=== PATIENT | male | born 1945 | race Caucasian/White ===

== ENCOUNTER 2019-12-30 12:06 | Inpatient (IN) | payer MEDICARE, MEDICAID, SELFPAY ==
--- NOTE | ~2019-12-30 | XR_ITS ---
EXAMINATION: XR chest 2V DATE: 12/30/2019 12:42 INDICATION: Weakness TECHNIQUE: Frontal and lateral views of the chest are obtained COMPARISON: None available FINDINGS: There is slightly asymmetric opacification in the right lung apex. There is no pleural effu rafael or pneumothorax. The cardiomediastinal silhouette is normal. There is mild thoracic spondylosis. IMPRESSION: 1. Slight asymmetric opacification of the right lung apex compared to the left. Finding could reflect scarring, atelectasis, or overlapping vasculature however, further evaluation with CT is recommended . Reviewed, dictated and finalized at location A. LE MAKER IMPRESSION: 1. Slight asymmetric opacification of the right lung apex compared to the left. Finding could reflect scarring, atelectasis, or overlapping vasculature kia gavin, further evaluation with CT is recommended.
--- NOTE | ~2019-12-30 | CT_ITS ---
EXAMINATION: CT chest wo con DATE: 12/30/2019 13:32 INDICATION: Right apical lung opacity on chest radiograph TECHNIQUE: Computed tomography (CT) of the chest was performed without intravenous contrast. The dose -length product (DLP) was 800.52 mGy-cm. Automated exposure control and iterative reconstruction tech XTRMque were employed. COMPARISON: None FINDINGS: Blood vessels account for the right apical asymmetry seen on the chest radiograph. There is elevation of the right hemidiaphragm. Mild dependent atelectasis is noted. No pathologically enlarge d thoracic lymph nodes are identified. The heart size is normal. Calcified coronary artery atheroscle rosis is noted. There is circumferential wall thickening of the distal esophagus. The nondistended ga llbladder contains numerous stones. There is a 3.9 cm cyst of the right kidney. Healed bilateral rib fractures are noted. IMPRESSION: 1. Prominent vasculature accounting for the chest radiographic finding in question. 2. Circumferential thickening of the distal esophagus, possibly esophagitis. Recommend nonemergent di rect visualization. 3. Cholelithiasis without evidence of cholecystitis. Reviewed, dictated and finalized at location A. GING MACHINE OPERATOR IMPRESSION: 1. Prominent vasculature accounting for the chest radiographic finding in quest ion. 2. Circumferential thickening of the distal esophagus, possibly esophagitis. Re commend nonemergent direct visualization. 3. Cholelithiasis without evidence of cholecystitis.
[2019-12-30 12:15] VITALS: BP 145/65; PULSE 107; RESP 18; TEMP 36.9; O2SAT 93
[2019-12-30 12:34] LABS: Appearance Urine Cloudy (Clear); Bilirubin Urine 1+ (Negative); Color Urine Yellow (Yellow); Glucose Urine UA Negative (Negative); Ketones Urine Trace (Negative); Leukocyte Esterase Ur 2+ LEU/UL (Negative); Nitrate Urine Positive (Negative); Protein Urine 2+ (Negative); Specific Grav Ur 1.015 (1.010-1.020); Urobilinogen Urine 0.2 mg/dL (0.2-1.0); pH Urine 8.5 (5.0-8.0)
[2019-12-30 12:41] LABS: Add Urine Microscopic? YES; Blood Urine Trace-Intact (Negative)
[2019-12-30 12:42] LABS: Amorphous Sediment Urine Heavy; Bacteria Urine 2+ /hpf; RBC Urine 0-2 /hpf (0-2); Triple Phosphate Crystal Urine Present /hpf
[2019-12-30] MEDS: SODIUM CHLORIDE 0.9% IV 1,000 ML 999 ML IV CONT (12:45)
--- NOTE | 2019-12-30 12:45 | ECG_ITS ---
Measurements Intervals [place] Rate: 113 P: 46 MN: 156 QRS: 43 QRSD: 84 T: 39 QT: 317 QTc: 436 Interpretive Statements SINUS TACHYCARDIA BORDERLINE ST-T WAVE ABNORMALITY- INF/LAT LEADS BASELINE ARTIFACT- I, II, III, AVR, AVL, AVF, V1 ABNORMAL ECG Electronically Signed On 12-30-2019 13:53:14 [employer]IP[employer] by Michael Medina D.O.
[2019-12-30 12:52] LABS: Influenza Control Valid (Valid)
--- NOTE | 2019-12-30 12:54 | ED.FEVER ---
HPI - Fever General Chief Complaint: Fever Stated Complaint: ambulance Source: patient, family and EMS Mode of arrival: EMS Limitations: no limitations History of Present Illness HPI Narrative: a 74-year-old male presents to emergency department via EMS with family calling EMS with increased temperature fever of 102 and increased weakness, patient denies any shortness of breath denies chest pain no abdominal pain is having some increased issues with urinary frequency with dysuria burning sensation and a follow-up older. patient with a history diabetes 2 hypertension hyperlipidemia BKA and lesion to his left ear. Patient has been having dark urine with increasing weakness is here with his and they have called EMS for further evaluation. Patient denies abdominal pain there is no flank pain or tenderness patient appears slightly confused with thumb no headaches no blurry vision. MD elicited complaint: fever and weakness Pertinent past history: diabetes Onset (ago): day(s) Exacerbating factors: nothing Relieving factors: nothing Associated symptoms: denies other symptoms Related Data Home Medications Medication Instructions Recorded Confirmed aspirin [Aspir-81] 81 mg PO DAILY 12/30/19 12/30/19 felodipine 10 mg PO DAILY 12/30/19 12/30/19 insulin aspart U-100 [Novolog 16 unit SUBCUT TIDWM 12/30/19 12/30/19 U-100 Insulin aspart] insulin glargine [Lantus U-100 50 unit SUBCUT HS 12/30/19 12/30/19 Insulin] lisinopril-hydrochlorothiazide 2 tablet PO DAILY 12/30/19 12/30/19 metformin 1,000 mg PO BID 12/30/19 12/30/19 metoprolol succinate 50 mg PO DAILY 12/30/19 12/30/19 pravastatin 80 mg PO HS 12/30/19 12/30/19 Allergies Allergy/AdvReac Type Severity Reaction Status Date / Time No Known Allergies Allergy Verified 12/30/19 13:04 Review of Systems Review of Systems: All systems reviewed & are unremarkable except as noted in HPI and below PMFSH Past Medical History Medical History Diabetes mellitus HLD (hyperlipidemia) HTN (hypertension) Surgical History Surgical History Hx of BKA Exam Const: General: no acute distress and alert Orientation/consciousness: patient oriented x3 and confusion HENMT: Head: normal to inspection Other: Ulcerative lesion on the left earlobe Eyes: Conjunctivae: conjunctivae normal Pupils: Equal, round and reactive pupils present EOM: EOMs intact bilaterally Neck: Neck: normal visual inspection Chest: Chest palpation & inspection: normal inspection of the chest and abnormal inspection of the chest Resp: Effort & Inspection: normal respiratory effort Auscultation: clear to auscultation bilaterally Cardio: Rate: regular rate and tachycardic GI: GI Palp: Yes Soft to palpation : General: Yes no CVA tenderness Urinary Catheter: Urinary Catheter: patent and draining Back/Spine/Pelvis: Back: no CVA tenderness Skin: General skin exam: normal color Rashes: no rashes Neuro: General: patient oriented x3, moves all extremities, no meningeal signs and no focal motor deficits Extrem: Other: right [id number] Psych: Mental Status: mental status grossly normal Affect: normal affect Thought content: Yes Normal thought content present MDM - Fever Lab Data Attestation: I reviewed the patient's lab results. Labs: Lab Results 12/30/19 12/30/19 Range/Units 12:24 12:24 Urine Color Yellow (Yellow) Urine Appearance Cloudy A (Clear) Urine pH 8.5 H (5.0-8.0) Ur Specific [place] 1.015 (1.010-1.020) Urine Protein 2+ H (Negative) Urine Glucose (UA) Negative (Negative) Urine Ketones Trace H (Negative) Ur Blood (Man) Trace-intact H (Negative) Urine Nitrate Positive H (Negative) Urine Bilirubin 1+ H (Negative) Urine Urobilinogen 0.2 (0.2-1.0) mg/dL Leukocyte Esterase Rfl 2+ H (Negative) CLAUDY/UL U
[2019-12-30 13:00] LABS: Hematocrit 45.7 % (37.0-46.0); Hemoglobin 15.1 g/dL (12.4-15.3); Mean Corpuscular Hemoglobin 30.4 pg (27.0-31.0); Mean Corpuscular Volume 92.1 fL (78.0-102.0); Platelet Count Result 372 K/mm3 (150-420); Red Blood Count 4.96 M/mm3 (4.70-6.10)
[2019-12-30 13:06] LABS: White Blood Count 21.1 K/mm3 (4.8-10.8)
[2019-12-30 13:12] LABS: Partial Thromboplastin Time 30.5 SEC (22.3-31.6); Prothrombin Time 10.2 Seconds (9.64-11.0)
[2019-12-30 13:20] LABS: Lactic Acid Reflex 3.2 mmol/L (0.4-2.0)
[2019-12-30 13:21] LABS: Band Neutrophils Percent 1 % (0-6); Basophils Absolute Manual 0.42 K/mm3 (0-0.1); Basophils Percent Manual 2 % (0-1); Eosinophils Percent Manual 0 % (1-6); Lymphocytes Absolute Manual 2.74 K/mm3 (1.1-4.5); Lymphocytes Percent Manual 13 % (18-44); Monocytes Absolute Manual 0.84 K/mm3 (0.1-0.90); Monocytes Percent Manual 4 % (3-9); Neutrophils Absolute Manual 17.09 K/mm3 (1.3-6.7); Neutrophils Percent Manual 80 % (46-73); Platelet Estimate Adequate (Adequate); Total Cells Counted 100
[2019-12-30 13:29] LABS: Alanine Aminotransferase 20 U/L (16-63); Albumin Level 3.5 g/dL (3.4-5.0); Alkaline Phosphatase 51 U/L (46-116); Anion Gap 20.1 mmol/L (7-16); Aspartate Amino Transferase 18 U/L (15-37); Bilirubin,Total 0.8 mg/dL (0.00-1.00); Blood Urea Nitrogen 22 mg/dL (7-18); CRP 2.1 mg/dL (0.0-0.9); Calcium 8.7 mg/dL (8.5-10.1); Carbon Dioxide 23 mmol/L (21-32); Chloride 98 mmol/L (98-108); Estimated Glomerular Filt Rate > 60; Glucose 200 mg/dL (70-99); Osmolality Calculated 293 mOsm/kg (285-295); Potassium 4.1 mmol/L (3.5-5.1); Sodium 137 mmol/L (136-145); Total Protein 7.8 g/dL (6.4-8.2)
[2019-12-30 13:52] LABS: Reflex Lactic Acid Yes or No Add Lactic; Troponin I < 0.02 ng/mL (0.00-0.056)
[2019-12-30] MEDS: SODIUM CHLORIDE 0.9% IV 1,000 ML 100 ML IV CONT (14:26)
--- NOTE | 2019-12-30 14:35 | PC.NURSE ---
RN CONTACTED JENN, LEAD NETWORK ARCHITECT, TO REQUEST AN INPATIENT ROOM. ROOM 227 PROVIDED. REGISTRATION NOTIFIED.
[2019-12-30 15:18] VITALS: BMI 32.5
[2019-12-30 16:00] VITALS: BP 139/86; PULSE 114; RESP 18; TEMP 36.4; O2SAT 95
[2019-12-30 16:30] LABS: Lactic Acid 2.3 mmol/L (0.4-2.0)
[2019-12-30 17:04] LABS: Glucose Point of Care 116 (65-105)
[2019-12-30] MEDS: metFORMIN HCL 500 MG TABLET 1000 MG PO (17:07)
--- NOTE | 2019-12-30 17:10 | PM.IMHP ---
H&P: HPI History of Present Illness Chief complaint: ambulance Narrative: .Braulio Turpin is a 74 year old male that presents today because the temperature 102 he also had difficulty urinating. Has a past history diabetes, hyperlipidemia and hypertension. According to his has been ill for a couple weeks, they were unable to tell me the exact time of illness. she noted that she decided to take his temperature because he felt warm when she did he had a fever of 102. he also had difficulty urinating with a burning sensations while urinating. According to his his urine had dark yellowish color. vital signs are 36.4, 114, 18, 95%, 139/86. While in the ER urine was collected which show positive nitrates and leukocytes with bacteria, patient white blood cells increased 21.1, lactic acid 2.3, anion gap 20.1 and CRP of 2.1 an elevated BUN. patient does have an open wound on his left ear and left face. According to his he is being treated for possible skin cancer.Patient is being admitted for UTI with sepsis and acute kidney injury. Patient denies SOB, CP, palpitation, extremity numbness, lightheadness, dizziness, constipation, diarrhea, or chills. his is his primary care provider she will not be able to care him, I suggested that he discharged to rehab. Review of Systems Constitutional: Constitutional: Denies body ache(s), Denies chills, Reports fatigue, Reports fever(s), Denies headache(s) and Reports lethargy ENT: Denies vertigo and Denies dizziness Cardiovascular: Cardiovascular: Denies chest pain at rest, Denies chest pain with activity and Denies dyspnea Respiratory: Respiratory: Denies chest congestion and Denies cough Gastrointestinal: Gastrointestinal: Reports diarrhea, Denies nausea and Denies vomiting Genitourinary: Genitourinary: Denies hematuria, Reports oliguria, Reports dysuria and Reports urinary hesitancy Musculoskeletal: Musculoskeletal: Reports muscle weakness and Denies numbness Integumentary/Breasts: Skin/Breast: Reports skin ulcer ( Open ulcer to the left ear and right cheek) PMF Past Medical History Medical History Diabetes mellitus HLD (hyperlipidemia) HTN (hypertension) Surgical History Surgical History Hx of BKA Family History Family History (Updated 12/30/19 @ 15:43 by Laura Trevino RN) Father Cancer Mother Cancer Social History Social History Smoking status: Former smoker Tobacco type: cigarettes, pipe, cigars and smokeless tobacco Second hand tobacco smoke exposure: Yes Alcohol intake: current Drinks per week: 6 Substance use type: does not use Gender identity (if verbalized by the patient): Male Spiritual care concerns: No Agree to blood products: Yes Meds Home Medications and Allergies Home Medications Medication Instructions Recorded Confirmed Type aspirin [Aspir-81] 81 mg PO DAILY 12/30/19 12/30/19 History felodipine 10 mg PO DAILY 12/30/19 12/30/19 History insulin aspart U-100 [Novolog 16 unit SUBCUT TIDWM 12/30/19 12/30/19 History U-100 Insulin aspart] insulin glargine [Lantus U-100 50 unit SUBCUT HS 12/30/19 12/30/19 History Insulin] lisinopril-hydrochlorothiazide 2 tablet PO DAILY 12/30/19 12/30/19 History metformin 1,000 mg PO BID 12/30/19 12/30/19 History metoprolol succinate 50 mg PO DAILY 12/30/19 12/30/19 History pravastatin 80 mg PO HS 12/30/19 12/30/19 History Allergies Allergy/AdvReac Type Severity Reaction Status Date / Time No Known Allergies Allergy Verified 12/30/19 13:04 Vital Signs Vital Signs - 24 hr 12/30/19 12:15 12/30/19 16:00 Temperature 36.9 C 36.4 C Pulse Rate 107 H 114 H Respiratory Rate 18 18 Blood Pressure 145/65 H 139/86 Pulse Oximetry 93 95 Exam Narrative: Exam Narrative: General: poor hygiene, obese,sit
[2019-12-30 20:00] VITALS: BP 155/75; PULSE 102; RESP 14; TEMP 36.1; O2SAT 95
[2019-12-30] MEDS: PRAVASTATIN SODIUM 20 MG TABLET 80 MG PO (21:09)
--- NOTE | 2019-12-30 21:27 | PC.NURSE ---
notified that patient's bedside glucoscan result was 106 and patient is due to have Lantus 50 units. N.O. to hold Lantus.
[2019-12-30 21:30] LABS: Glucose Point of Care 107 (65-105)
[2019-12-30 22:00] VITALS: BP 155/75; PULSE 102; RESP 16; TEMP 36.4; O2SAT 95
[2019-12-31] VITALS (8 sets, daily range): BP systolic 127–168; BP diastolic 60–86; PULSE 58–92; RESP 14–24; TEMP 36.4; O2SAT 95–96
[2019-12-31] MEDS: SODIUM CHLORIDE 0.9% IV 1,000 ML 100 ML IV CONT ×2 (03:37→13:41)
[2019-12-31 08:08] LABS: Glucose Point of Care 141 (65-105)
[2019-12-31 08:59] LABS: Basophils Absolute Auto 0.06 K/mm3 (0.00-0.10); Basophils Percent Auto 0.4 % (0.0-1.0); Eosinophils Absolute Auto 0.26 K/mm3 (0.02-0.50); Eosinophils Percent Auto 1.9 % (1.0-6.0); Hematocrit 44.1 % (37.0-46.0); Hemoglobin 14.7 g/dL (12.4-15.3); Immature Granulocyte Absolute 0.05 K/mm3 (0.00-0.00); Immature Granulocyte Percent A 0.4 % (0.0-0.0); Lymphocytes Absolute Auto 2.56 K/mm3 (1.10-4.50); Lymphocytes Percent Auto 19.1 % (18.0-42.0); Mean Corpuscular HGB Conc 33.3 g/dL (32.0-36.0); Mean Corpuscular Hemoglobin 30.8 pg (27.0-31.0); Mean Corpuscular Volume 92.5 fL (78.0-102.0); Mean Platelet Volume 10.1 fl (8.7-11.0); Monocytes Absolute Auto 0.86 K/mm3 (0.10-0.90); Monocytes Percent Auto 6.4 % (2.0-11.0); Neutrophils Absolute Auto 9.6 K/mm3 (1.7-7.2); Neutrophils Percent Auto 71.8 % (50.0-70.0); Platelet Count Result 338 K/mm3 (150-420); Red Blood Count 4.77 M/mm3 (4.70-6.10); White Blood Count 13.4 K/mm3 (4.8-10.8)
[2019-12-31 09:16] LABS: Alanine Aminotransferase 18 U/L (16-63); Albumin Level 3.3 g/dL (3.4-5.0); Alkaline Phosphatase 47 U/L (46-116); Anion Gap 17.7 mmol/L (7-16); Aspartate Amino Transferase 11 U/L (15-37); Bilirubin,Total 1.1 mg/dL (0.00-1.00); Blood Urea Nitrogen 8 mg/dL (7-18); Calcium 8.4 mg/dL (8.5-10.1); Carbon Dioxide 24 mmol/L (21-32); Chloride 101 mmol/L (98-108); Estimated CRCL calculation 76 ml/min; Estimated Glomerular Filt Rate > 60; Glucose 236 mg/dL (70-99); Osmolality Calculated 294 mOsm/kg (285-295); Potassium 3.7 mmol/L (3.5-5.1); Sodium 139 mmol/L (136-145); Total Protein 7.5 g/dL (6.4-8.2)
[2019-12-31 09:22] LABS: Lactic Acid Reflex 1.7 mmol/L (0.4-2.0)
[2019-12-31 10:00] LABS: CRP 3.9 mg/dL (0.0-0.9)
[2019-12-31] MEDS: FELODIPINE 2.5 MG TABCR 10 MG PO (10:10)
[2019-12-31] MEDS: hydroCHLOROthiazide 12.5 MG CAPSULE 25 MG PO (10:11)
[2019-12-31] MEDS: metFORMIN HCL 500 MG TABLET 1000 MG PO ×2 (10:11→17:28)
[2019-12-31] MEDS: METOPROLOL SUCCINATE EXT REL 50 MG TABCR PO (10:12)
[2019-12-31] MEDS: ASPIRIN 81 MG ENTERIC TABLET PO (10:12)
[2019-12-31] MEDS: lisinopriL 20 MG TABLET 40 MG PO (10:12)
[2019-12-31] MEDS: PANTOPRAZOLE 40 MG TABLET PO ×2 (11:12→20:44)
[2019-12-31 12:06] LABS: Glucose Point of Care 180 (65-105)
--- NOTE | 2019-12-31 14:28 | PM.IMPN ---
Progress Note: A&P Assessment and Plan (1) Sepsis: Qualifiers: Sepsis acute organ dysfunction status: unspecified Sepsis type: sepsis due to unspecified organism Qualified Code(s): A41.9 - Sepsis, unspecified organism <Jennifer Guzman MARCIEC - Last Filed: 12/31/19 14:43> Code(s): A41.9 - Sepsis, unspecified organism <Jennifer Guzman REYNALDO-C - Last Filed: 12/31/19 14:43> Status: Acute <Jennifer Guzman IRRIGATION TEACHER-C - Last Filed: 12/31/19 14:43> Assessment and Plan: as evidenced by leukocytosis, tachycardia, positive nitrate leukocytes and bacteria on UA - continue antibiotics Rocephin - UA culture pending - blood culture pending - continue to hydrate - patient afebrile - continue vital signs to monitor for fever - elevated CPR 3.9 - elevated lactic acid Within normal limits - anion gap 17.1 elevated but improving CBC in a.m. BMP in a.m. <Jennifer WalterDuane Thomas MARCIEC - Last Filed: 12/31/19 14:43> (2) Acute UTI: Code(s): N39.0 - Urinary tract infection, site not specified <Jennifer Guzman REYNALDO-C - Last Filed: 12/31/19 14:43> Status: Acute <Jennifer Guzman REYNALDO-C - Last Filed: 12/31/19 14:43> Assessment and Plan: as evidence by positive nitrate leukocytes and bacteria in urine - continue Rocephin - UA culture pending - patient afebrile - continue to hydrate with IV fluids <Jennifer WalterDuane Thomas IRRIGATION TEACHER-C - Last Filed: 12/31/19 14:43> (3) Hx of BKA: Code(s): Z89.519 - Acquired absence of unspecified leg below knee <Jennifer WalterDuane Guzman IRRIGATION TEACHER-C - Last Filed: 12/31/19 14:43> Status: Acute <Jennifer Guzman IRRIGATION TEACHER-C - Last Filed: 12/31/19 14:43> Assessment and Plan: stable <Josefsantana Jose AngelDuane Guzman IRRIGATION TEACHER-C - Last Filed: 12/31/19 14:43> (4) HLD (hyperlipidemia): Code(s): E78.5 - Hyperlipidemia, unspecified <DESTINEY Rothman - Last Filed: 12/31/19 14:43> Status: Acute <DESTINEY Rothman - Last Filed: 12/31/19 14:43> Assessment and Plan: continue statins <DESTINEY Rothman - Last Filed: 12/31/19 14:43> (5) HTN (hypertension): Code(s): I10 - Essential (primary) hypertension <DESTINEY Rothman - Last Filed: 12/31/19 14:43> Status: Acute <DESTINEY Rothman - Last Filed: 12/31/19 14:43> Assessment and Plan: stable blood pressure 168/86 added hydralazine with parameters will adjust medication as needed vital signs is ordered continue lisinopril and metoprolol <DESTINEY Rothman - Last Filed: 12/31/19 14:43> (6) Diabetes mellitus: Code(s): E11.9 - Type 2 diabetes mellitus without complications <DESTINEY Rothman - Last Filed: 12/31/19 14:43> Status: Acute <DESTINEY Rothman - Last Filed: 12/31/19 14:43> Assessment and Plan: blood sugar 200's continue Accu-Cheks and sliding scale was hypoglycemic protocol - continue home medication Lantus and lispro change sliding scale from low to moderate will adjust medication as needed - continue diabetic diet <DESTINEY Rothman - Last Filed: 12/31/19 14:43> (7) Abnormal finding on imaging: Code(s): R93.89 - Abnormal findings on diagnostic imaging of other specified body structures <DESTINEY Rothman - Last Filed: 12/31/19 14:43> Status: Acute <DESTINEY Rothman - Last Filed: 12/31/19 14:43> Assessment and Plan: CT indicates- Circumferential thickening of the distal esophagus, possibly esophagitis. Recommend nonemergent direct visualization. cxr- Slight asymmetric opacification of the right lung apex compared to the left. Finding could reflect scarring, atelectasis, or overlapping vasculature however, further evaluation with CT is recommended. patient will need to follow-up with his PCP for possible esophagitis <REYNALDO Rothman-C - Last Filed: 12/31/19 14:43>
[2019-12-31] MEDS: ENOXAPARIN 40 MG/0.4 ML SYRINGE SUB-Q (14:44)
[2019-12-31 16:38] LABS: Glucose Point of Care 93 (65-105)
[2019-12-31] MEDS: PRAVASTATIN SODIUM 20 MG TABLET 80 MG PO (20:43)
[2019-12-31] MEDS: TEMAZEPAM 15 MG CAPSULE PO (20:48)
[2019-12-31 20:53] LABS: Glucose Point of Care 80 (65-105)
[2020-01-01] MEDS: SODIUM CHLORIDE 0.9% IV 1,000 ML 100 ML IV CONT (00:11)
[2020-01-01 00:18] VITALS: BP 147/68; PULSE 70; RESP 20; TEMP 36.3; O2SAT 93
--- NOTE | 2020-01-01 02:35 | PC.NURSE ---
pt yelling loudly. went to assess, pt propped up on elbow stating that he had been incontinent of bowel and his throat hurt. I explained to the patient that he had been sleeping with his mouth open with a fan blowing on him (per his request) for the last 4 hours. Incontinence care provided. positioned for comfort. call light in reach. water offered, pt refused.
[2020-01-01 04:12] VITALS: BP 136/75; PULSE 85; RESP 20; TEMP 36.2; O2SAT 98
[2020-01-01 05:45] LABS: Hematocrit 42.8 % (37.0-46.0); Hemoglobin 14.3 g/dL (12.4-15.3); Mean Corpuscular HGB Conc 33.4 g/dL (32.0-36.0); Mean Corpuscular Hemoglobin 30.8 pg (27.0-31.0); Platelet Count Result 320 K/mm3 (150-420); Red Blood Count 4.65 M/mm3 (4.70-6.10)
[2020-01-01 05:58] LABS: Alanine Aminotransferase 14 U/L (16-63); Alkaline Phosphatase 43 U/L (46-116); Anion Gap 15.5 mmol/L (7-16); Aspartate Amino Transferase 14 U/L (15-37); Bilirubin,Total 0.8 mg/dL (0.00-1.00); Blood Urea Nitrogen 9 mg/dL (7-18); CRP 2.3 mg/dL (0.0-0.9); Calcium 8.4 mg/dL (8.5-10.1); Carbon Dioxide 24 mmol/L (21-32); Chloride 103 mmol/L (98-108); Estimated CRCL calculation 79 ml/min; Estimated Glomerular Filt Rate > 60; Glucose 172 mg/dL (70-99); Osmolality Calculated 290 mOsm/kg (285-295); Potassium 3.5 mmol/L (3.5-5.1); Sodium 139 mmol/L (136-145); Total Protein 6.9 g/dL (6.4-8.2)
[2020-01-01 06:09] LABS: Lactic Acid 1.1 mmol/L (0.4-2.0)
[2020-01-01 07:47] LABS: Glucose Point of Care 154 (65-105)
[2020-01-01 08:00] VITALS: BP 154/84; PULSE 84; RESP 18; TEMP 35.9; O2SAT 97
--- NOTE | 2020-01-01 08:32 | PC.NURSE ---
assisted with breakfast, denies needs, tavares patent and draining at this time, fluids infusing
[2020-01-01] MEDS: hydroCHLOROthiazide 12.5 MG CAPSULE 25 MG PO (09:52)
[2020-01-01 09:53] VITALS: PULSE 82
[2020-01-01] MEDS: metFORMIN HCL 500 MG TABLET 1000 MG PO ×2 (09:53→17:15)
[2020-01-01] MEDS: METOPROLOL SUCCINATE EXT REL 50 MG TABCR PO (09:53)
[2020-01-01] MEDS: PANTOPRAZOLE 40 MG TABLET PO ×2 (09:53→21:44)
[2020-01-01] MEDS: ASPIRIN 81 MG ENTERIC TABLET PO (09:54)
[2020-01-01] MEDS: lisinopriL 20 MG TABLET 40 MG PO (09:54)
[2020-01-01] MEDS: FELODIPINE 2.5 MG TABCR 10 MG PO (09:54)
--- NOTE | 2020-01-01 10:00 | PC.NURSE ---
patient placed on bed vann, had a small stool, cleansed and repositioned with assist
--- NOTE | 2020-01-01 11:30 | PC.NURSE ---
at the bedside, denies needs,
[2020-01-01 11:58] LABS: Glucose Point of Care 203 (65-105)
[2020-01-01 12:00] VITALS: BP 140/80; PULSE 84; RESP 20; TEMP 36.1; O2SAT 95
--- NOTE | 2020-01-01 12:30 | PC.NURSE ---
ate well with assist from , no cough noted, takes oral fluids well, denies pain, saline lock in place left wrist/hand
--- NOTE | 2020-01-01 13:34 | PM.IMPN ---
Progress Note: A&P Assessment and Plan (1) Sepsis: Qualifiers: Sepsis acute organ dysfunction status: unspecified Sepsis type: sepsis due to unspecified organism Qualified Code(s): A41.9 - Sepsis, unspecified organism Code(s): A41.9 - Sepsis, unspecified organism Status: Acute Assessment and Plan: as evidenced by leukocytosis, tachycardia, positive nitrate leukocytes and bacteria on UA - continue antibiotics Rocephin, added vancomycin - UA culture indicates enterococci is species, sensitivity pending - blood culture pending - continue to hydrate - patient afebrile - continue vital signs to monitor for fever - lactic acid Within normal limits - anion gap 17.1 elevated but improving CBC in a.m. BMP in a.m. wbc's today 14 on admission 21 (2) Acute UTI: Code(s): N39.0 - Urinary tract infection, site not specified Status: Acute Assessment and Plan: as evidence by positive nitrate leukocytes and bacteria in urine - continue Rocephin D3/7 added vancomycin D1/7 - UA culture indicate enterococci species - patient afebrile (3) Hx of BKA: Code(s): Z89.519 - Acquired absence of unspecified leg below knee Status: Acute Assessment and Plan: stable (4) HLD (hyperlipidemia): Code(s): E78.5 - Hyperlipidemia, unspecified Status: Acute Assessment and Plan: continue statins (5) HTN (hypertension): Code(s): I10 - Essential (primary) hypertension Status: Acute Assessment and Plan: stable blood pressure 154/84 added hydralazine with parameters will adjust medication as needed vital signs is ordered continue lisinopril and metoprolol (6) Diabetes mellitus: Code(s): E11.9 - Type 2 diabetes mellitus without complications Status: Acute Assessment and Plan: blood sugar 172 continue Accu-Cheks and sliding scale was hypoglycemic protocol - continue home medication Lantus and lispro continue sliding scale will adjust medication as needed - continue diabetic diet (7) Abnormal finding on imaging: Code(s): R93.89 - Abnormal findings on diagnostic imaging of other specified body structures Status: Acute Assessment and Plan: CT indicates- Circumferential thickening of the distal esophagus, possibly esophagitis. Recommend nonemergent direct visualization. cxr- Slight asymmetric opacification of the right lung apex compared to the left. Finding could reflect scarring, atelectasis, or overlapping vasculature however, further evaluation with CT is recommended. patient will need to follow-up with his PCP for possible esophagitis Subjective Date/time seen: 01/01/20 13:34 patient has no complaint at this time Patient able to tolerate all meals and slept well. Patient denies SOB, CP, palpitation, extremity numbness, lightheadness, dizziness, constipation, diarrhea, or chills or fever. Patient agree that they are ready for discharge and discharge plan. patient will discharge tomorrow to a rehab facility physical therapy/occupational therapy Review of Systems Constitutional: Constitutional: Denies body ache(s), Denies chills, Reports fatigue, Reports fever(s), Denies headache(s) and Reports lethargy ENT: Denies vertigo, Denies dizziness and Denies headache(s) Cardiovascular: Cardiovascular: Denies chest pain at rest, Denies chest pain with activity and Denies dyspnea Respiratory: Respiratory: Denies chest congestion, Denies cough and Denies dyspnea Gastrointestinal: Gastrointestinal: Reports diarrhea, Denies nausea and Denies vomiting Genitourinary: Genitourinary: Denies hematuria, Reports oliguria, Reports dysuria and Reports urinary hesitancy Musculoskeletal: Musculoskeletal: Reports muscle weakness and Denies numbness Integumentary/Breasts: Skin/Breast: Reports skin ulcer ( Open ulcer to the left ear and right cheek) Neurologic: Denies vertigo, Denies dizziness, Den
--- NOTE | 2020-01-01 14:10 | PC.NURSE ---
patient and informed of additional antibiotic due to results of urine cultures
[2020-01-01] MEDS: ENOXAPARIN 40 MG/0.4 ML SYRINGE SUB-Q (15:07)
[2020-01-01 15:42] VITALS: BP 109/52; PULSE 80; RESP 18; TEMP 36.3; O2SAT 96
--- NOTE | 2020-01-01 16:01 | PC.NURSE ---
chaitanya patent and draining, here reading paper with spouse,
[2020-01-01 17:00] LABS: Glucose Point of Care 152 (65-105)
--- NOTE | 2020-01-01 18:27 | PC.NURSE ---
Pulling on tavares states all tangled up, insists we remove stabilizer device, removed, more calm, no longer pulling on cath, advised will be removed tomorrow prior to discharge in the am, taking po fluids well, re oriented to hospital setting, has left for the day
[2020-01-01] MEDS: PRAVASTATIN SODIUM 20 MG TABLET 80 MG PO (21:44)
--- NOTE | 2020-01-01 21:50 | PC.NURSE ---
Patient took HS meds without difficulty. Catheter emptied of 750ml clear yellow urine. Call light in reach.
[2020-01-01 22:03] LABS: Glucose Point of Care 117 (65-105)
--- NOTE | 2020-01-01 22:20 | PC.NURSE ---
Patient appears to be sleeping by the rise and fall of his chest. Respirations even and unlabored. No distress noted. Call light in reach.
--- NOTE | 2020-01-01 23:10 | PC.NURSE ---
Patient appears to be sleeping by the rise and fall of his chest. Respirations even and unlabored. No distress noted. Call light in reach.
--- NOTE | 2020-01-01 23:42 | PM.EVENT ---
Event Note Event Note Event Note: Patient states he feels better today. Lungs clear to auscultation, regular rate rhythm without murmur. Abdomen is soft nontender. Extremity show no edema. Urine culture grew enterococci pending susceptibilities. Will's given dose of vancomycin today. will need to find alternate method of controlling urine /incontinence and remove Sotelo. I have examined the patient's reviewed the chart. I discussed the patient's care with Galdino Guzman APN and agree with her assessment and plan.
[2020-01-02] VITALS: BP 111/63; PULSE 70; RESP 18; TEMP 35.7; O2SAT 96
--- NOTE | 2020-01-02 01:00 | PC.NURSE ---
Patient appears to be sleeping by the rise and fall of his chest. Respirations even and unlabored. No distress noted. Call light in reach.
--- NOTE | 2020-01-02 02:05 | PC.NURSE ---
Patient appears to be sleeping by the rise and fall of his chest. Respirations even and unlabored. No distress noted. Call light in reach.
--- NOTE | 2020-01-02 03:00 | PC.NURSE ---
Patient appears to be sleeping by the rise and fall of his chest. Respirations even and unlabored. No distress noted. Call light in reach.
--- NOTE | 2020-01-02 04:10 | PC.NURSE ---
Patient appears to be sleeping by the rise and fall of his chest. Respirations even and unlabored. No distress noted. Call light in reach.
--- NOTE | 2020-01-02 05:05 | PC.NURSE ---
Patient appears to be sleeping by the rise and fall of his chest. Respirations even and unlabored. No distress noted. Call light in reach.
--- NOTE | 2020-01-02 06:03 | PC.NURSE ---
Patient appears to be sleeping by the rise and fall of his chest. Respirations even and unlabored. No distress noted. Call light in reach.
[2020-01-02 06:15] LABS: Hematocrit 44.4 % (37.0-46.0); Mean Corpuscular HGB Conc 33.8 g/dL (32.0-36.0); Mean Corpuscular Hemoglobin 30.7 pg (27.0-31.0); Mean Corpuscular Volume 90.8 fL (78.0-102.0); Mean Platelet Volume 9.6 fl (8.7-11.0); Platelet Count Result 342 K/mm3 (150-420); Red Blood Count 4.89 M/mm3 (4.70-6.10); Red Cell Distribution Width 12.7 % (11.6-14.4); White Blood Count 12.7 K/mm3 (4.8-10.8)
[2020-01-02 06:40] LABS: Anion Gap 12.6 mmol/L (7-16); Blood Urea Nitrogen 10 mg/dL (7-18); Calcium 8.7 mg/dL (8.5-10.1); Carbon Dioxide 28 mmol/L (21-32); Chloride 101 mmol/L (98-108); Estimated CRCL calculation 70 ml/min; Estimated Glomerular Filt Rate > 60; Glucose 183 mg/dL (70-99); Osmolality Calculated 290 mOsm/kg (285-295); Potassium 3.6 mmol/L (3.5-5.1); Sodium 138 mmol/L (136-145)
[2020-01-02 07:41] LABS: Glucose Point of Care 160 (65-105)
[2020-01-02 08:00] VITALS: BP 134/63; PULSE 70; RESP 18; TEMP 35.8; O2SAT 95
[2020-01-02 09:49] VITALS: PULSE 80
[2020-01-02] MEDS: FELODIPINE 2.5 MG TABCR 10 MG PO (09:49)
[2020-01-02] MEDS: METOPROLOL SUCCINATE EXT REL 50 MG TABCR PO (09:49)
[2020-01-02] MEDS: lisinopriL 20 MG TABLET 40 MG PO (09:50)
[2020-01-02] MEDS: metFORMIN HCL 500 MG TABLET 1000 MG PO ×2 (09:50→17:06)
[2020-01-02] MEDS: hydroCHLOROthiazide 12.5 MG CAPSULE 25 MG PO (09:51)
[2020-01-02] MEDS: PANTOPRAZOLE 40 MG TABLET PO (09:52)
[2020-01-02] MEDS: ASPIRIN 81 MG ENTERIC TABLET PO (09:52)
--- NOTE | 2020-01-02 10:35 | PC.NURSE ---
tavares cath removed, tolerated well, urinal to patient and advised to call for assistance, reviewed how to call for assistance with call light, verbalized understanding
--- NOTE | 2020-01-02 10:49 | PM.DS ---
DS: Diagnosis Admitting Diagnosis Admitting Diagnosis: Sepsis, unspecified organism Discharge Diagnosis (1) Sepsis: Qualifiers: Sepsis acute organ dysfunction status: unspecified Sepsis type: sepsis due to unspecified organism Qualified Code(s): A41.9 - Sepsis, unspecified organism Code(s): A41.9 - Sepsis, unspecified organism Status: Acute Assessment and Plan: resolved as evidenced by leukocytosis, tachycardia, positive nitrate leukocytes and bacteria on UA - continue antibiotics Rocephin, added vancomycin - UA culture indicates enterococci is species, sensitivity indicate sensitive to Macrobid will discharge with micro beds - blood culture pending - lactic acid Within normal limits wbc's today 14 on admission 21 (2) Acute UTI: Code(s): N39.0 - Urinary tract infection, site not specified Status: Acute Assessment and Plan: as evidence by positive nitrate leukocytes and bacteria in urine - sensitivity test indicates sensitive macrobid will discharge with this antibiotics for 7 - UA culture indicate enterococci species - patient afebrile (3) Hx of BKA: Code(s): Z89.519 - Acquired absence of unspecified leg below knee Status: Acute Assessment and Plan: stable (4) HLD (hyperlipidemia): Code(s): E78.5 - Hyperlipidemia, unspecified Status: Acute Assessment and Plan: continue statins (5) HTN (hypertension): Code(s): I10 - Essential (primary) hypertension Status: Acute Assessment and Plan: stable date of discharge continue home medication (6) Diabetes mellitus: Code(s): E11.9 - Type 2 diabetes mellitus without complications Status: Acute Assessment and Plan: blood sugar appear to dropped in the 80s and HS continue home medication Lantus , next dose was decreased will send patient to nursing with sliding scale sliding scale continue diabetic diet (7) Abnormal finding on imaging: Code(s): R93.89 - Abnormal findings on diagnostic imaging of other specified body structures Status: Acute Assessment and Plan: CT indicates- Circumferential thickening of the distal esophagus, possibly esophagitis. Recommend nonemergent direct visualization. cxr- Slight asymmetric opacification of the right lung apex compared to the left. Finding could reflect scarring, atelectasis, or overlapping vasculature however, further evaluation with CT is recommended. patient will need to follow-up with his PCP for possible esophagitis DS: Summary Hospital Course Hospital Course: admission 12/30/19 H&P note: Braulio Turpin is a 74 year old male that presents today because the temperature 102 he also had difficulty urinating. Has a past history diabetes, hyperlipidemia and hypertension. According to his has been ill for a couple weeks, they were unable to tell me the exact time of illness. she noted that she decided to take his temperature because he felt warm when she did he had a fever of 102. he also had difficulty urinating with a burning sensations while urinating. According to his his urine had dark yellowish color. vital signs are 36.4, 114, 18, 95%, 139/86. While in the ER urine was collected which show positive nitrates and leukocytes with bacteria, patient white blood cells increased 21.1, lactic acid 2.3, anion gap 20.1 and CRP of 2.1 an elevated BUN. patient does have an open wound on his left ear and left face. According to his he is being treated for possible skin cancer.Patient is being admitted for UTI with sepsis and acute kidney injury. Patient denies SOB, CP, palpitation, extremity numbness, lightheadness, dizziness, constipation, diarrhea, or chills. his is his primary care provider she will not be able to care him, I suggested that he discharged to rehab. discharged on 01/02/2020: patient will discharge to rehab. this day of discharge patient
--- NOTE | 2020-01-02 11:32 | PC.NURSE ---
Napping, denies need to void at this time, reminded how to use call light for assistance
[2020-01-02 11:46] LABS: Glucose Point of Care 229 (65-105)
--- NOTE | 2020-01-02 13:00 | PC.NURSE ---
voiding small amounts of urine per urinal, denies needs
--- NOTE | 2020-01-02 14:24 | PC.NURSE ---
saline lock removed in tact, tolerated well, number to call for care home report received,
--- NOTE | 2020-01-02 14:39 | PC.NURSE ---
report to Ailyn at [facility]
--- NOTE | 2020-01-02 14:40 | PC.NURSE ---
Awaiting EMS for transfer
--- NOTE | 2020-01-02 15:30 | PC.NURSE ---
Awaiting EMS for transfer to [facility]
[2020-01-02 15:53] VITALS: BP 140/66; PULSE 72; RESP 18; TEMP 36.1; O2SAT 95
--- NOTE | 2020-01-02 16:30 | PC.NURSE ---
resting quietly, awaiting EMS for transfer
[2020-01-02 16:35] LABS: Glucose Point of Care 152 (65-105)
--- NOTE | 2020-01-02 17:02 | PC.NURSE ---
continue to wait for EMS, bedside glucose completed and dinner provided, insulin given with metformin
--- NOTE | 2020-01-02 17:07 | PC.NURSE ---
states would not like the insulin due to not really wanting what is provided for dinner, will take metformin, afraid sugar will drop en route to [facility] for rehab
--- NOTE | 2020-01-02 18:24 | PC.NURSE ---
transfer to [facility] in [place] for rehab, personal items and discharge packet with pateint
--- NOTE | 2020-01-02 20:58 | PM.EVENT ---
Event Note Event Note Event Note: Pt. admitted for urosepsis which has been managed appropriately. I have reviewed the chart, discussed with Roberth Guzman N.P. and evaluated patient. I agree with the treatment plan. C&S grew enterococcus sensitive to nitrofurantoin. Pt's BNP is high but no comparison. His weakness has markedly improved. He has had improvement of his SOB while taking Lasix, but refuses to take it at home because of the polyuria. He has bibasilar rales without wheezes on exam. Pt to be d.c. on Macrobid, f/u with PCP & monitor dyspnea.
--- NOTE | 2020-01-05 14:01 | PC.NURSE ---
Discharge Call back [facility] healthcare RN home Spoke with Nurse, Patient signed himself out the same day he was admitted.
--- NOTE | 2020-01-05 14:05 | PC.NURSE ---
Discharge Call Back Called patient home. Spoke with . Stated [facility] is a real [facility], everyone there was respectful verbilized understanding of written and verbal instructions given at discharge.
== END 2020-01-02 18:10 | DRG 872 ==
LOC: CHSED 13:53 → CHS2ND 12-31 07:02
PROVIDERS: Nurse Practitioner; Admitting Provider Emergency Medicine; Emergency Provider Emergency Medicine; PCP Family Medicine; Visit Provider Emergency Medicine
DX: E11.9 Type 2 diabetes mellitus without complications (principal); I10 Essential (primary) hypertension; E78.5 Hyperlipidemia, unspecified; A41.9 Sepsis, unspecified organism; N39.0 Urinary tract infection, site not specified; N17.9 Acute kidney failure, unspecified; L98.499 Non-pressure chronic ulcer of skin of other sites with unspecified severity; R93.89 Abnormal findings on diagnostic imaging of other specified body structures; B95.2 Enterococcus as the cause of diseases classified elsewhere; Z89.511 Acquired absence of right leg below knee
CPT/HCPCS: 36415; 71046; 71250; 80048; 80053; 81001; 83605; 84484; 85025; 85027; 85610; 85730; 86140; 87040; 87077; 87086; 87088; 87186; 87804; 93005; 96361; 96365; 99285; A9270; J0696; J1650; J1815; J3370; J7030

== ENCOUNTER 2020-08-06 15:26 | Inpatient (IN) | payer MEDICARE, MEDICAID, SELFPAY ==
--- NOTE | ~2020-08-06 | CT_ITS ---
EXAMINATION: CT chest abdomen pelvis w con DATE: 08/10/2020 15:21 INDICATION: Left sphenoid wing mass, concern for metastatic disease TECHNIQUE: Transaxial computed tomographic images of the chest, abdomen, and pelvis were obtained aft er the administration of 100 cc of Omnipaque 350 intravenous contrast. The dose-length product (DLP) was 1687.42 mGy-cm. Automated exposure control and iterative reconstruction technique were employed. COMPARISON: 12/30/2019 FINDINGS: CHEST CT: There is chronic elevation of the right hemidiaphragm. The lungs are free of acute opacities. There i s no pleural effusion or pneumothorax. No pathologically enlarged thoracic lymph nodes are identified . The heart size is normal. Calcified coronary artery atherosclerosis is noted. There is mild thoraci c spondylosis. ABDOMEN/PELVIS CT: Stones are present in the nondistended gallbladder. The liver and spleen are unremarkable. There is m ild nodularity of the right adrenal gland without discrete mass identified. There is a 12 mm cystic l esion in the uncinate process of the pancreas. There appears to be atrophy of the left kidney and lef t adrenal gland. A Sotelo catheter is present in the bladder. There are several bladder diverticula. T here is mild wall thickening of the bladder with adjacent fat stranding. There is a 3.7 cm cyst of th e right kidney. There is calcified atherosclerosis of the aorta and many of the other arteries. No pa thologically enlarged abdominal or pelvic lymph nodes are identified. Colonic diverticulosis is prese nt without evidence of diverticulitis. A moderate volume of colonic stool is present. An intramedulla ry reji is present in the right femur. There is mild lumbar spondylosis. A fat-containing left inguina l hernia is noted. IMPRESSION: 1. No primary neoplasm identified in the chest, abdomen, or pelvis. 2. Bladder wall thickening and adjacent inflammatory change, consistent with cystitis. 3. Cholelithiasis without evidence of cholecystitis. 4. 12 mm cystic lesion in the uncinate process of the pancreas. The differential diagnosis includes p seudocyst, intraductal papillary mucinous neoplasm (IPMN), mucinous cystic neoplasm (MCN), and the le ss common serous cystadenoma and neuroendocrine tumor. Correlate for history of pancreatitis. Follow- up pancreas protocol CT or MRI in two years is recommended. 5. Atrophy of the left kidney Reviewed, dictated and finalized at location A. IMPRESSION: 1. No primary neoplasm identified in the chest, abdomen, or pelvis. 2. Bladder wall thickening and adjacent inflammatory change, consistent with cy stitis. 3. Cholelithiasis without evidence of cholecystitis. 4. 12 mm cystic lesion in the uncinate process of the pancreas. The differentia l diagnosis includes pseudocyst, intraductal papillary mucinous neoplasm (IPMN) , mucinous cystic neoplasm (MCN), and the less common serous cystadenoma and ne uroendocrine tumor. Correlate for history of pancreatitis. Follow-up pancreas p rotocol CT or MRI in two years is recommended. 5. Atrophy of the left kidney
--- NOTE | ~2020-08-06 | CT_ITS ---
EXAMINATION: CT soft tissue neck w con DATE: 08/11/2020 13:00 INDICATION: Left sphenoid wing mass. TECHNIQUE: Computed tomography (CT) of the neck was performed with 75 mL Omnipaque-350 intravenous co ntrast. Automated exposure control and iterative reconstruction technique were employed. The dose-cara gth product was 481.65 mGy-cm. COMPARISON: Head CT 08/10/2020 FINDINGS: Partially visualized is an enhancing mass of the left sphenoid wing measuring 4.3 x 3.0 cm. There is a permeative lytic pattern of the involved bone. The mass extends into the orbit and left m iddle cranial fossa. There are no pathologically enlarged lymph nodes. There is plaque in the proxima l internal carotid arteries with less than 50% stenosis relative to normal distal artery lumen diamet ers. There is a mucous retention cyst in right maxillary sinus. There is a right mastoid effusion. Th ere is a 2.5 cm mass at the left pinna. There is an old healed fracture of right second rib. There is severe cervical spondylosis. IMPRESSION: 1. Left sphenoid wing mass, most likely a meningioma. Less likely, this mass may be metastatic diseas e or a hemangiopericytoma. 2. 2.5 cm mass at the left pinna, which may be benign or malignant. Correlate with physical exam. Reviewed, dictated and finalized at location B. IMPRESSION: 1. Left sphenoid wing mass, most likely a meningioma. Less likely, this mass ma y be metastatic disease or a hemangiopericytoma. 2. 2.5 cm mass at the left pinna, which may be benign or malignant. Correlate w ith physical exam.
--- NOTE | ~2020-08-06 | XR_ITS ---
EXAMINATION: XR chest 1V portable DATE: 08/06/2020 16:50 INDICATION: Sepsis. Urinary tract infection. TECHNIQUE: frontal view of the chest was obtained. COMPARISON: Chest radiograph and CT dated 12/30/2019 FINDINGS: The lungs remain clear with no focal airspace opacities, pulmonary edema, pleural effusion or pneumot horax. The cardiomediastinal silhouette is normal. A few old healed right rib fractures. IMPRESSION: 1. No acute cardiopulmonary disease. Reviewed, dictated and finalized at location A.
--- NOTE | ~2020-08-06 | CT_ITS ---
EXAMINATION: CT brain wo con DATE: 08/10/2020 11:39 INDICATION: Unresolved confusion TECHNIQUE: Computed tomography (CT) of the head was performed without intravenous contrast. Sagittal and coronal reconstructions were performed. The mA was adjusted according to patient size. Iterative reconstruction technique was employed. The dose-length product was 756.67 mGy-cm. COMPARISON: None FINDINGS: There is an expansile lytic lesion centered at the greater wing of the left sphenoid. There is disrup tion of the inner and outer tables of the cortex as well as a permeative appearance to the superolate ral wall of the left orbit. There is a surrounding soft tissue mass measuring 4.4 x 4.2 x 4.0 cm whic h extends into the left middle cranial fossa exerting mass effect upon the anterior left temporal lob e and inferolateral aspect of the left frontal lobe. There is also extracranial extension into the berry perolateral aspect of the left orbit and into the left temporal fossa beneath the temporalis muscle. No acute intracranial hemorrhage, acute infarction or abnormal extra axial fluid collection. Symmetri c prominence of the ventricles which is disproportionate to the mild increased prominence of the sulc i. There is moderate scattered white matter hypoattenuation consistent with chronic small vessel isch emic disease. No intra-axial mass. There is left proptosis likely similar to the intraorbital extens ion of the previously noted mass. Mucous retention cyst in the right maxillary sinus. Right mastoid e ffusion. Intracranial calcified cerebral atherosclerosis is noted. IMPRESSION: 1. 4.4 x 4.2 x 4.0 cm mass which appears to originate within the greater ring of the left sphenoid jacqui ne with intracranial extension at the left medial cranial fossa as well as into the superolateral asp ect of the left orbit resulting in proptosis. Differential would include metastatic disease, multiple myeloma/plasmacytoma, lymphoma or less likely other primary bone tumor. 2. Symmetric increased prominence of the ventricles which is disproportionate to the mild increased p rominence of the sulci. This could be related to either central predominant atrophy or normal pressur e hydrocephalus (NPH: clinical triad ataxia/gait disturbance, dementia, urinary incontinence). 3. Moderate scattered white matter hypoattenuation consistent with chronic small vessel ischemic dise ase. Reviewed, dictated and finalized at location A. IMPRESSION: 1. 4.4 x 4.2 x 4.0 cm mass which appears to originate within the greater ring o f the left sphenoid bone with intracranial extension at the left medial cranial fossa as well as into the superolateral aspect of the left orbit resulting in proptosis. Differential would include metastatic disease, multiple myeloma/plas macytoma, lymphoma or less likely other primary bone tumor. 2. Symmetric increased prominence of the ventricles which is disproportionate t o the mild increased prominence of the sulci. This could be related to either c entral predominant atrophy or normal pressure hydrocephalus (NPH: clinical tria d ataxia/gait disturbance, dementia, urinary incontinence). 3. Moderate scattered white matter hypoattenuation consistent with chronic smal l vessel ischemic disease.
--- NOTE | ~2020-08-06 | CT_ITS ---
EXAMINATION: CT brain w con DATE: 08/10/2020 15:21 INDICATION: Confusion, altered mental state. Metastatic disease. TECHNIQUE: Computed tomography (CT) of the head was performed without intravenous contrast. The mA wa s adjusted according to patient size. Iterative reconstruction technique was employed. Exam dose: 16 87.42 mGy-cm total exam DLP. COMPARISON: 08/10/[address] brain FINDINGS: A 4.4 cm enhancing mass is noted with destruction of the left sphenoid wing, extension into the left lateral orbit and the left frontal temporal area. The features are consistent with a malign ant mass with associated bone destruction. Bilateral carotid siphon internal carotid artery calcifications. There is nonspecific diminished attenuation of the subcortical and periventricular cerebral white mat ter, likely due to chronic small vessel ischemic changes. The ventricles are prominent which may be consistent with central cerebral atrophy versus normal pres sure hydrocephalus. No other intracranial mass lesion or hemorrhage, midline shift or mass effect is noted. No subdural o r epidural hematoma. No skull fracture. Large polyp or mucous retention cyst of the right maxillary sinus. IMPRESSION: 4.4 cm enhancing destructive mass of the left sphenoid wing; differential diagnosis incl udes metastatic lesion, lymphoma, multiple myeloma or plasmacytoma or less likely other primary bone tumor. Cerebral atherosclerosis and chronic small vessel ischemic changes of the cerebral white matter Prominence of the ventricles; this may be secondary to central atrophy or normal pressure hydrocephal us; recommended, correlation for gait disturbance, dementia, urinary incontinence. Reviewed, dictated and finalized at Location A. Reviewed, dictated and finalized at location A. IMPRESSION: 4.4 cm enhancing destructive mass of the left sphenoid wing; diffe rential diagnosis includes metastatic lesion, lymphoma, multiple myeloma or fabian smacytoma or less likely other primary bone tumor. Cerebral atherosclerosis and chronic small vessel ischemic changes of the cereb ral white matter Prominence of the ventricles; this may be secondary to central atrophy or milton l pressure hydrocephalus; recommended, correlation for gait disturbance, jose ia, urinary incontinence.
--- NOTE | 2020-08-06 15:35 | ED.AMS ---
HPI - Altered Mental Status General Chief Complaint: Urogenital-Male Stated Complaint: AMBULANCE Time Seen by Provider: 08/06/20 15:30 History of Present Illness HPI narrative: 75-year-old male patient was brought in by EMS to the ER with chief complaints of altered mental status. The patient is unable to provide any history. According to his the patient has been home with her since January after he was discharged from the hospital with urinary tract infection. The patient has mostly stayed home and inactive. The states that last 1 week he has not been feeling well and has been getting more irritable. Apparently last night he was a little confused which she noticed was getting worse this morning. She noted that he was not eating his food and he was getting very irritable. She denies any known history of vomiting or diarrhea. She denies any knowledge of patient having a fever or chills. She states that he was slightly congested and had mild cough. The patient is actually a right BKA from the past. He is ambulatory with wheelchair and does not uses artificial leg especially since the last hospitalization. According to the he has been home and not been exposed to anybody that she knows of. 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 Related Data Home Medications Medication Instructions Recorded Confirmed felodipine 10 mg PO DAILY 12/30/19 08/06/20 insulin aspart U-100 [Novolog 16 unit SUBCUT TIDWM 12/30/19 08/06/20 U-100 Insulin aspart] lisinopril-hydrochlorothiazide 2 tablet PO DAILY 12/30/19 08/06/20 metformin 1,000 mg PO BID 12/30/19 08/06/20 metoprolol succinate 50 mg PO DAILY 12/30/19 08/06/20 pravastatin 80 mg PO HS 12/30/19 08/06/20 Lantus U-100 Insulin 50 unit SUBCUT HS 08/06/20 08/06/20 famotidine 20 mg PO DAILY 08/06/20 08/06/20 Allergies Allergy/AdvReac Type Severity Reaction Status Date / Time No Known Allergies Allergy Verified 12/30/19 13:04 Review of Systems Review of Systems: ROS unobtainable: Yes unobtainable due to mental status ( Unable to obtained due to altered mental status) PMFSH Past Medical History Medical History Diabetes mellitus HLD (hyperlipidemia) HTN (hypertension) Surgical History Surgical History Hx of BKA Family History Family History Father Cancer Mother Cancer Social History Social History Smoking status: Former smoker Tobacco type: cigarettes, pipe, cigars and smokeless tobacco Second hand tobacco smoke exposure: Yes Alcohol intake: current Drinks per week: 6 Substance use type: does not use Gender identity (if verbalized by the patient): Male Spiritual care concerns: No Agree to blood products: Yes Exam Const: General: confusion and ill appearing Nutritional Appearance: well nourished Limitations: altered mental status Other: Very unkempt appearance with very strong odor of urine. HENMT: Head: normal to inspection and no contusions Mouth: Yes dry mucous membranes Eyes: Pupils: Equal, round and reactive pupils present Neck: Neck: no lymphadenopathy Chest: Chest palpation & inspection: normal inspection of the chest Resp: Effort & Inspection: normal respiratory effort and no use of accessory muscles Auscultation: clear to auscultation bilaterally Cardio: Rate: regular rate Rhythm: regular rhythm GI: GI Palp: Yes Soft to palpation, No Guarding due to palpation present (GI) and No Rebound tenderness present : Male General Exam: Yes normal external exam Other: Incontinent of urine. A tavares catheter was placed immediately after admiting to ER and his urine is turbid Urinary Catheter: Urinary Catheter: urine cloudy Skin: General skin exam: normal color Rashes: no rashes Neuro: General: No patient oriented x3 O
--- NOTE | 2020-08-06 15:36 | ECG_ITS ---
Measurements Intervals [place] Rate: 94 P: 49 WY: 174 QRS: 44 QRSD: 81 T: 46 QT: 355 QTc: 445 Interpretive Statements SINUS RHYTHM BASELINE WANDER- I, II NORMAL ECG Electronically Signed On 08-07-2020 7:03:13 CDT by Michael Medina D.O.
[2020-08-06 15:40] VITALS: BP 131/67; PULSE 112; RESP 24; TEMP 37.3; O2SAT 97
[2020-08-06] MEDS: LORazepam INJ (*CRX) 2 MG/ML VIAL 1 MG IV PUSH (15:40)
[2020-08-06] MEDS: SODIUM CHLORIDE 0.9% IV 1,000 ML 999 ML IV CONT (15:40)
[2020-08-06] MEDS: HALOPERIDOL LACTATE 5 MG/ML VIAL IM (15:40)
[2020-08-06 16:00] LABS: Add Urine Microscopic? YES; Appearance Urine Cloudy (Clear); Bilirubin Urine Negative (Negative); Blood Urine 3+ (Negative); Color Urine Yellow (Yellow); Glucose Urine UA 3+ (Negative); Ketones Urine 3+ (Negative); Leukocyte Esterase Ur 1+ LEU/UL (Negative); Nitrate Urine Negative (Negative); Protein Urine 2+ (Negative); Specific Grav Ur 1.025 (1.010-1.020); Urobilinogen Urine 0.2 mg/dL (0.2-1.0)
[2020-08-06 16:02] LABS: Hematocrit 47.1 % (37.0-46.0); Hemoglobin 15.9 g/dL (12.4-15.3); Mean Corpuscular HGB Conc 33.8 g/dL (32.0-36.0); Mean Corpuscular Hemoglobin 30.6 pg (27.0-31.0); Mean Corpuscular Volume 90.8 fL (78.0-102.0); Mean Platelet Volume 10.2 fl (8.7-11.0); Platelet Count Result 401 K/mm3 (150-420); Red Blood Count 5.19 M/mm3 (4.70-6.10); Red Cell Distribution Width 12.3 % (11.6-14.4); White Blood Count 19.2 K/mm3 (4.8-10.8)
[2020-08-06 16:19] LABS: RBC Urine >75 /hpf (0-2); Squamous Epithelial Cell Urine Rare /hpf (Few); WBC Urine >75 /hpf (0-3)
[2020-08-06 16:20] LABS: Bacteria Urine 2+ /hpf; Lactic Acid Reflex 3.4 mmol/L (0.4-2.0)
[2020-08-06 16:24] LABS: Partial Thromboplastin Time 28.5 SEC (22.3-31.6); Prothrombin Time 10.8 Seconds (9.64-11.0)
[2020-08-06 16:25] LABS: Base Excess ABG -1.1 mmol/L (0-2); HCO3 ABG 21.3 mmol/L (23-29); Oxygen Saturation ABG 97.2 % (95-97); PCO2 ABG 30.4 mmHg (35-45); PO2 ABG 85.4 mmHg (75-85); Total Hemoglobin 16.3 g/dL; pH ABG 7.46 (7.35-7.45)
[2020-08-06 16:27] LABS: Device ROOM AIR; Modified Allen's Test Pass; Site Drawn RIGHT RADIAL
[2020-08-06 16:29] LABS: Alanine Aminotransferase 30 U/L (16-63); Albumin Level 3.6 g/dL (3.4-5.0); Alkaline Phosphatase 63 U/L (46-116); Anion Gap 14 mmol/L (8-16); Aspartate Amino Transferase 10 U/L (15-37); Blood Urea Nitrogen 10 mg/dL (7-18); CRP 1.2 mg/dL (0.0-0.9); Calcium 8.9 mg/dL (8.5-10.1); Carbon Dioxide 23 mmol/L (21-32); Chloride 96 mmol/L (98-108); Estimated Glomerular Filt Rate > 60; Glucose 327 mg/dL (70-99); Osmolality Calculated 288 mOsm/kg (285-295); Potassium 3.7 mmol/L (3.5-5.1); Sodium 133 mmol/L (136-145); Total Protein 7.7 g/dL (6.4-8.2)
[2020-08-06 16:33] LABS: Acetone Negative (Negative)
[2020-08-06 16:44] LABS: Band Neutrophils Percent 0 % (0-6); Basophils Percent Manual 0 % (0-1); Eosinophils Percent Manual 0 % (1-6); Lymphocytes Absolute Manual 2.11 K/mm3 (1.1-4.5); Lymphocytes Percent Manual 11 % (18-44); Monocytes Absolute Manual 0.19 K/mm3 (0.1-0.90); Monocytes Percent Manual 1 % (3-9); Neutrophils Absolute Manual 16.89 K/mm3 (1.3-6.7); Neutrophils Percent Manual 88 % (46-73); Total Cells Counted 100
[2020-08-06 16:45] LABS: Platelet Estimate Adequate (Adequate)
[2020-08-06 16:49] VITALS: BP 132/68; PULSE 93; RESP 19; O2SAT 95
[2020-08-06 17:45] VITALS: BP 148/75; PULSE 101; RESP 19; O2SAT 96
[2020-08-06] MEDS: SODIUM CHLORIDE 0.9% IV 1,000 ML 120 ML IV CONT (18:16)
[2020-08-06 18:17] VITALS: BP 186/78; PULSE 114; TEMP 37.2; O2SAT 96
[2020-08-06 18:18] VITALS: BMI 34.2
[2020-08-06 18:56] LABS: Reflex Lactic Acid Yes or No Add Lactic
[2020-08-06] MEDS: ONDANSETRON INJ 4 MG/2 ML VIAL IV PUSH (19:43)
[2020-08-06 20:00] VITALS: BP 121/74; PULSE 117; PULSE 120; RESP 20; TEMP 38.6; O2SAT 97
[2020-08-06 20:22] LABS: Glucose Point of Care 258 (65-105)
[2020-08-06 23:41] VITALS: BP 129/89; PULSE 113; RESP 14; TEMP 37.3; O2SAT 98
[2020-08-07] VITALS (9 sets, daily range): BP systolic 127–151; BP diastolic 67–96; PULSE 68–100; RESP 14–20; TEMP 36.6–37.6; O2SAT 94–97
[2020-08-07] MEDS: SODIUM CHLORIDE 0.9% IV 1,000 ML 120 ML IV CONT ×3 (02:30→18:53)
--- NOTE | 2020-08-07 07:32 | PM.IMHP ---
H&P: HPI History of Present Illness Date/Time: 08/07/20 07:32 Chief complaint: AMS UTI SEPSIS Narrative: Braulio Turpin is a 75 year old male who is an alert and oriented x1 and therefore a poor historian. Patient was brought into the ER by ambulance for altered mental status. According to the ER records patient was hospitalized for UTI back in December of this year. According to the this patient was home and inactive since his discharge. The reports that patient has not been feeling well for the past week. He had a decreased appetite and was becoming more irritable. He is a diabetic with a right BKA. Review of Systems Review of Systems: ROS unobtainable: Yes unobtainable due to mental status (Patient is alert and oriented x1) PMFSH Past Medical History Medical History Diabetes mellitus HLD (hyperlipidemia) HTN (hypertension) Surgical History Surgical History Hx of BKA Family History Family History Father Cancer Mother Cancer Social History Social History Smoking status: Former smoker Tobacco type: cigarettes, pipe, cigars and smokeless tobacco Second hand tobacco smoke exposure: Yes Alcohol intake: current Drinks per week: 6 Substance use: unknown Substance use type: does not use Gender identity (if verbalized by the patient): Male Sexual Orientation (if Verbalized by the Patient): Straight or Heterosexual Spiritual care concerns: No Agree to blood products: Yes Meds Home Medications and Allergies Home Medications Medication Instructions Recorded Confirmed Type felodipine 10 mg PO DAILY 12/30/19 08/06/20 History insulin aspart U-100 [Novolog 16 unit SUBCUT TIDWM 12/30/19 08/06/20 History U-100 Insulin aspart] lisinopril-hydrochlorothiazide 2 tablet PO DAILY 12/30/19 08/06/20 History metformin 1,000 mg PO BID 12/30/19 08/06/20 History metoprolol succinate 50 mg PO DAILY 12/30/19 08/06/20 History pravastatin 80 mg PO HS 12/30/19 08/06/20 History Lantus U-100 Insulin 50 unit SUBCUT HS 08/06/20 08/06/20 History famotidine 20 mg PO DAILY 08/06/20 08/06/20 History Allergies Allergy/AdvReac Type Severity Reaction Status Date / Time No Known Allergies Allergy Verified 12/30/19 13:04 Vital Signs Vital Signs - 24 hr 08/06/20 15:40 08/06/20 16:49 08/06/20 17:45 Temperature 99.2 F Pulse Rate 112 H 93 101 H Respiratory Rate 24 H 19 19 Blood Pressure 131/67 132/68 148/75 H Pulse Oximetry 97 95 96 08/06/20 18:17 08/06/20 20:00 08/06/20 23:41 Temperature 99.0 F 101.4 F H 99.1 F Pulse Rate 114 H 117 H 113 H Respiratory Rate 20 14 Blood Pressure 186/78 H 121/74 129/89 Pulse Oximetry 96 97 98 08/07/20 04:00 08/07/20 07:22 Temperature 99.7 F H Pulse Rate 100 Respiratory Rate 14 18 Blood Pressure Pulse Oximetry Exam Const: General: cooperative, no acute distress, alert, awake and confusion Nutritional Appearance: obese Orientation/consciousness: oriented to person HENMT: Head: other (keloid right cheek with minimal bleeding) Ears: other ( keloids left earlobe) Resp: Auscultation: clear to auscultation bilaterally (a little diminished, patient is weak, mild labored breathing) Cardio: Jugular venous distension: no JVD Rate: regular rate Rhythm: regular rhythm Heart sounds: S1 normal heart sound present and S2 normal heart sound present GI: Inspection: obesity GI Palp: Yes Soft to palpation Auscultation: normal bowel sounds Urinary Catheter: Urinary Catheter: patent and draining Neuro: General: oriented to person (does follow commands) Extrem: Right lower extremity: abnormal to inspection (below-knee amputation) H&P: Results Labs Labs: Short CBC 08/06/20 Range/Units 15:36 WBC 19.2 H (4.8
[2020-08-07 08:38] LABS: Glucose Point of Care 268 (65-105)
[2020-08-07 08:59] LABS: Basophils Absolute Auto 0.03 K/mm3 (0.00-0.10); Basophils Percent Auto 0.2 % (0.0-1.0); Eosinophils Absolute Auto 0.01 K/mm3 (0.02-0.50); Eosinophils Percent Auto 0.1 % (1.0-6.0); Hematocrit 42.1 % (37.0-46.0); Hemoglobin 14.5 g/dL (12.4-15.3); Immature Granulocyte Absolute 0.14 K/mm3 (0.00-0.00); Immature Granulocyte Percent A 0.7 % (0.0-0.0); Lymphocytes Absolute Auto 2.73 K/mm3 (1.10-4.50); Lymphocytes Percent Auto 14.3 % (18.0-42.0); Mean Corpuscular HGB Conc 34.4 g/dL (32.0-36.0); Mean Corpuscular Hemoglobin 31.5 pg (27.0-31.0); Mean Corpuscular Volume 91.3 fL (78.0-102.0); Mean Platelet Volume 10.3 fl (8.7-11.0); Monocytes Percent Auto 8.4 % (2.0-11.0); Neutrophils Absolute Auto 14.6 K/mm3 (1.7-7.2); Neutrophils Percent Auto 76.3 % (50.0-70.0); Platelet Count Result 338 K/mm3 (150-420); Red Blood Count 4.61 M/mm3 (4.70-6.10); Red Cell Distribution Width 12.5 % (11.6-14.4); White Blood Count 19.1 K/mm3 (4.8-10.8)
[2020-08-07 09:14] LABS: Anion Gap 11 mmol/L (8-16); Blood Urea Nitrogen 11 mg/dL (7-18); Calcium 8.1 mg/dL (8.5-10.1); Carbon Dioxide 24 mmol/L (21-32); Chloride 99 mmol/L (98-108); Estimated CRCL calculation 70 ml/min; Estimated Glomerular Filt Rate > 60; Glucose 306 mg/dL (70-99); Osmolality Calculated 289 mOsm/kg (285-295); Potassium 3.6 mmol/L (3.5-5.1); Sodium 134 mmol/L (136-145)
[2020-08-07 09:24] LABS: Magnesium 1.8 mg/dL (1.8-2.4)
[2020-08-07] MEDS: hydroCHLOROthiazide 12.5 MG CAPSULE PO (09:27)
[2020-08-07] MEDS: METOPROLOL SUCCINATE EXT REL 50 MG TABCR PO (09:27)
[2020-08-07] MEDS: ENOXAPARIN 30 MG/0.3 ML SYRINGE SUB-Q (09:27)
[2020-08-07] MEDS: FAMOTIDINE 20 MG TABLET PO (09:27)
[2020-08-07] MEDS: lisinopriL 20 MG TABLET PO (09:27)
[2020-08-07] MEDS: SODIUM CHLORIDE 0.9% IV 1,000 ML 999 ML IV CONT (11:00)
--- NOTE | 2020-08-07 11:00 | PC.NURSE ---
in room sitting at pt. bedside. Patient resting quietly, restless at times. Alert x1. IV fluids infusing per order. Call light at side, Bed alarm active.
[2020-08-07 12:18] LABS: Glucose Point of Care 211 (65-105)
--- NOTE | 2020-08-07 15:30 | PC.NURSE ---
Patient sleeping quietly in bed with hob elevated. Call light and belongings at side.
[2020-08-07 16:31] LABS: Glucose Point of Care 224 (65-105)
--- NOTE | 2020-08-07 20:45 | PC.NURSE ---
PT PULLED IV OUT FOR THE SECOND TIME THIS HOUR. TOTAL BED CHANGE DUE TO BLOODY DRAINAGE FROM IV SITE. PT TURNED AND REPOSITIONED WITH ASSIST OF 2. PT REMAINS CONFUSED, ORIENTED TO SELF ONLY. BED ALARM ON, CALL FUENTES IN REACH, RAILS UP X3.
[2020-08-07] MEDS: PRAVASTATIN SODIUM 20 MG TABLET 80 MG PO (21:20)
[2020-08-07 21:27] LABS: Glucose Point of Care 194 (65-105)
--- NOTE | 2020-08-07 21:50 | PC.NURSE ---
CHARGE NURSE NOTIFIED OF PT PULLING IV OUT AGAIN. PHYSICIAN NOTIFIED BY THE CHARGE NURSE. ORDER TO DC IV FLUIDS AND CONTINUE WITH SL RECEIVED.
--- NOTE | 2020-08-07 22:33 | PC.NURSE ---
PT INCONTINENT OF LARGE DARK BROWN, LOOSE BM WITH UNDIGESTED FOOD. STACY CARE GIVEN. SKIN CLEAN, DRY AND INTACT. PT TURNED AND REPOSITIONED TO LEFT SIDE. ELDER EMPTIED OF YELLOW, CLOUDY URINE. BED RAILS UP X3, CALL FUENTES IN REACH. PT STARTING TO REST QUIETLY.
--- NOTE | 2020-08-07 23:32 | PC.NURSE ---
Dr Davila here to evaluate the pt
[2020-08-08] VITALS (8 sets, daily range): BP systolic 112–180; BP diastolic 59–93; PULSE 64–86; RESP 18–20; TEMP 36.7–37.1; O2SAT 95–97
[2020-08-08] MEDS: HALOPERIDOL LACTATE 5 MG/ML VIAL IM (00:08)
--- NOTE | 2020-08-08 00:35 | PM.EVENT ---
Event Note Event Note Event Note: For 08/07/20: I have examined the patient reviewed the chart. I discussed the patient's care with Chet Starkey APN and agree with his assessment and plan. This evening I was called because the patient had torn out 3 IVs. He was alert, denied pain or discomfort, and oriented to person. No apparent distress, however he was rather restless. Ordered IV fluids to be discontinued and a saline lock placed if possible. We also gave him 5 mg of Haldol for mild agitation.
--- NOTE | 2020-08-08 00:50 | PC.NURSE ---
Iv access finally obtained after multiple attempts due to pt fighting staff, 3 RN's present to help initiate iv access
--- NOTE | 2020-08-08 02:02 | PC.NURSE ---
pt incontinent of stool, cleaned and linens changed, pt tolerated well
--- NOTE | 2020-08-08 03:00 | PC.NURSE ---
pt incontinent of urine, tavares catheter assessed and still intact, linens changed, pt cleaned
[2020-08-08 05:31] LABS: Basophils Absolute Auto 0.06 K/mm3 (0.00-0.10); Basophils Percent Auto 0.5 % (0.0-1.0); Eosinophils Absolute Auto 0.32 K/mm3 (0.02-0.50); Eosinophils Percent Auto 2.4 % (1.0-6.0); Hematocrit 41.9 % (37.0-46.0); Hemoglobin 14.2 g/dL (12.4-15.3); Immature Granulocyte Absolute 0.06 K/mm3 (0.00-0.00); Immature Granulocyte Percent A 0.5 % (0.0-0.0); Lymphocytes Absolute Auto 2.69 K/mm3 (1.10-4.50); Lymphocytes Percent Auto 20.4 % (18.0-42.0); Mean Corpuscular HGB Conc 33.9 g/dL (32.0-36.0); Mean Corpuscular Hemoglobin 30.8 pg (27.0-31.0); Mean Corpuscular Volume 90.9 fL (78.0-102.0); Monocytes Absolute Auto 1.05 K/mm3 (0.10-0.90); Neutrophils Percent Auto 68.2 % (50.0-70.0); Platelet Count Result 292 K/mm3 (150-420); Red Blood Count 4.61 M/mm3 (4.70-6.10); Red Cell Distribution Width 12.4 % (11.6-14.4); White Blood Count 13.2 K/mm3 (4.8-10.8)
[2020-08-08 05:47] LABS: Alanine Aminotransferase 23 U/L (16-63); Albumin Level 2.8 g/dL (3.4-5.0); Alkaline Phosphatase 46 U/L (46-116); Anion Gap 10 mmol/L (8-16); Aspartate Amino Transferase 22 U/L (15-37); Bilirubin,Total 1.6 mg/dL (0.00-1.00); Blood Urea Nitrogen 8 mg/dL (7-18); Calcium 8.2 mg/dL (8.5-10.1); Carbon Dioxide 27 mmol/L (21-32); Chloride 102 mmol/L (98-108); Estimated CRCL calculation 82 ml/min; Estimated Glomerular Filt Rate > 60; Glucose 261 mg/dL (70-99); Osmolality Calculated 295 mOsm/kg (285-295); Potassium 3.3 mmol/L (3.5-5.1); Sodium 139 mmol/L (136-145); Total Protein 5.7 g/dL (6.4-8.2)
[2020-08-08 07:18] LABS: Glucose Point of Care 230 (65-105)
[2020-08-08] MEDS: METOPROLOL SUCCINATE EXT REL 50 MG TABCR PO (08:23)
[2020-08-08] MEDS: FAMOTIDINE 20 MG TABLET PO (08:23)
[2020-08-08] MEDS: POTASSIUM CHLORIDE 20 MEQ TABLET 40 MEQ PO (08:23)
[2020-08-08] MEDS: ENOXAPARIN 40 MG/0.4 ML SYRINGE SUB-Q (08:24)
[2020-08-08] MEDS: hydroCHLOROthiazide 12.5 MG CAPSULE PO (08:24)
[2020-08-08] MEDS: lisinopriL 20 MG TABLET PO (08:24)
--- NOTE | 2020-08-08 09:35 | P.PN_ITS ---
Progress Note: A&P Assessment and Plan (1) Urinary tract infection: Code(s): N39.0 - Urinary tract infection, site not specified <Jennifer Guzman REYNALDO-C - Last Filed: 08/08/20 13:28> Status: Acute <Jennifer Guzman REYNALDO-C - Last Filed: 08/08/20 13:28> Assessment and Plan: * continue Zosyn and added Bactrim * UA culture pending * WBC improving 13.2 * patient alert and orientated to self only for me, during rounds patient more alert able to tell us who the president is. * continue Sotelo <Jennifer Guzman MILK RECEIVER TANK TRUCK-C - Last Filed: 08/08/20 13:28> (2) Altered mental status: Code(s): R41.82 - Altered mental status, unspecified <Jennifer Guzman REYNALDO-C - Last Filed: 08/08/20 13:28> Status: Acute <Jennifer Guzman MARCIESharona - Last Filed: 08/08/20 13:28> Assessment and Plan: * possibly secondary to urinary tract infection * resolve the underlining condition <Jennifer Guzman REYNALDO-C - Last Filed: 08/08/20 13:28> (3) Hyperglycemia: Code(s): R73.9 - Hyperglycemia, unspecified <Jennifer Guzman REYNALDO-C - Last Filed: 08/08/20 13:28> Status: Acute <Jennifer Guzman MARCIEC - Last Filed: 08/08/20 13:28> Assessment and Plan: * ? Continue insulin , accuchecks and sliding scale ? Will adjust medication as needed ? Continue diabetic diet ? Diabetic education * restarted patient Lantus at 25 units HS * blood sugars in the 200s * refer to diabetes <Jennifer Guzman MILK RECEIVER TANK TRUCK-Sharona - Last Filed: 08/08/20 13:28> (4) Sepsis syndrome: Status: Acute <Jennifer Guzman MILK RECEIVER T[employer] TRUCK-C - Last Filed: 08/08/20 13:28> Assessment and Plan: * resolved * possibly urosepsis * today patient's temperature 98.2? with a heart rate of 68 blood pressure 162/84 and respiratory rate of 20 * continue Zosyn and added Bactrim * on08/07/2020 temperature 99.7?, WBC 19.2, lactic acid 3.4, source urinary tract infection, heart rate 113, respiratory rate 14 to 18, <Jennifer Guzman MARCIESharona - Last Filed: 08/08/20 13:28> (5) Electrolyte imbalance: Code(s): E87.8 - Other disorders of electrolyte and fluid balance, not elsewhere classified <Jennifer Guzman MARCIESharona - Last Filed: 08/08/20 13:28> Status: Acute <Jennifer Guzman DESTINEY - Last Filed: 08/08/20 13:28> (6) HTN (hypertension): Code(s): I10 - Essential (primary) hypertension <Jennifer Guzman DESTINEY - Last Filed: 08/08/20 13:28> Status: Acute <Jennifer Guzman MILK RECEIVER TANK TRUCKDemarcusSharona - Last Filed: 08/08/20 13:28> Assessment and Plan: * Blood pressure elevated 162/84 * Continue hydralazine 12.5, metoprolol 50 mg p.o. daily increase lisinopril to 40 mg daily instead of 20 * Continue to monitor vital sign * Adjust medication as needed. <Jennifer Guzman MILK RECEIVER TANK TRUCKDemarcusSharona - Last Filed: 08/08/20 13:28> (7) HLD (hyperlipidemia): Code(s): E78.5 - Hyperlipidemia, unspecified <Jennifer Guzman MILK RECEIVER TANK TRUCKDemarcusSharona - Last Filed: 08/08/20 13:28> Status: Acute <Jennifer Guzman MARCIESharona - Last Filed: 08/08/20 13:28> Assessment and Plan: * Continue statins <Jennifer GuzmanREYNALDO-Sharona - Last Filed: 08/08/20 13:28> (8) Diabetes mellitus: Code(s): E11.9 - Type 2 diabetes mellitus without complications <Jennifer Guzman MARCIESharona - Last Filed: 08/08/20 13:28> Status: Acute <Jennifer Guzman MILK RECEIVER T[employer] TRUCK-C - Last Filed: 08/08/20 13:28> Assessment and Plan: * Blood sugars in the 200 * Will continue Accu-Chek, sliding scale and hypoglycemic protocol. Will change sl
--- NOTE | 2020-08-08 09:35 | WPDPN ---
Progress Note: A&P Assessment and Plan (1) Urinary tract infection: Code(s): N39.0 - Urinary tract infection, site not specified <Jennifer Guzman REYNALDO-C - Last Filed: 08/08/20 13:28> Status: Acute <Jennifer Guzman REYNALDO-C - Last Filed: 08/08/20 13:28> Assessment and Plan: continue Zosyn and added Bactrim UA culture pending WBC improving 13.2 patient alert and orientated to self only for me, during rounds patient more alert able to tell us who the president is. continue Sotelo <Jennifer Guzman ENGINEERING MODEL MAKER-C - Last Filed: 08/08/20 13:28> (2) Altered mental status: Code(s): R41.82 - Altered mental status, unspecified <Jennifer Guzman REYNALDO-C - Last Filed: 08/08/20 13:28> Status: Acute <Jennifer Guzman ENGINEERING MODEL MAKERDemarcusC - Last Filed: 08/08/20 13:28> Assessment and Plan: possibly secondary to urinary tract infection resolve the underlining condition <Jennifer Guzman ENGINEERING MODEL MAKER-C - Last Filed: 08/08/20 13:28> (3) Hyperglycemia: Code(s): R73.9 - Hyperglycemia, unspecified <Jennifer Guzman ENGINEERING MODEL MAKER-C - Last Filed: 08/08/20 13:28> Status: Acute <Jennifer Guzman MARCIEC - Last Filed: 08/08/20 13:28> Assessment and Plan: ? Continue insulin , accuchecks and sliding scale ? Will adjust medication as needed ? Continue diabetic diet ? Diabetic education restarted patient Lantus at 25 units HS blood sugars in the 200s refer to diabetes <Jennifer Guzman ENGINEERING MODEL MAKER-C - Last Filed: 08/08/20 13:28> (4) Sepsis syndrome: Status: Acute <Jennifer Guzman ENGINEERING MODEL MAKER-C - Last Filed: 08/08/20 13:28> Assessment and Plan: resolved possibly urosepsis today patient's temperature 98.2? with a heart rate of 68 blood pressure 162/84 and respiratory rate of 20 continue Zosyn and added Bactrim on08/07/2020 temperature 99.7?, WBC 19.2, lactic acid 3.4, source urinary tract infection, heart rate 113, respiratory rate 14 to 18, <Jennifer Guzman MARCIESharona - Last Filed: 08/08/20 13:28> (5) Electrolyte imbalance: Code(s): E87.8 - Other disorders of electrolyte and fluid balance, not elsewhere classified <Jennifer Guzman ENGINEERING MODEL MAKER-C - Last Filed: 08/08/20 13:28> Status: Acute <Jennifer Guzman MARCIEC - Last Filed: 08/08/20 13:28> (6) HTN (hypertension): Code(s): I10 - Essential (primary) hypertension <Jennifer Guzman REYNALDOAlisia - Last Filed: 08/08/20 13:28> Status: Acute <Jennifer Guzman ENGINEERING MODEL MAKERDemarcusSharona - Last Filed: 08/08/20 13:28> Assessment and Plan: Blood pressure elevated 162/84 Continue hydralazine 12.5, metoprolol 50 mg p.o. daily increase lisinopril to 40 mg daily instead of 20 Continue to monitor vital sign Adjust medication as needed. <Jennifer Guzman MARCIESharona - Last Filed: 08/08/20 13:28> (7) HLD (hyperlipidemia): Code(s): E78.5 - Hyperlipidemia, unspecified <Jennifer Guzman MARCIEC - Last Filed: 08/08/20 13:28> Status: Acute <Jennifer Guzman ENGINEERING MODEL MAKER-C - Last Filed: 08/08/20 13:28> Assessment and Plan: Continue statins <Jennifer WalterDuane Guzman ENGINEERING MODEL MAKER-C - Last Filed: 08/08/20 13:28> (8) Diabetes mellitus: Code(s): E11.9 - Type 2 diabetes mellitus without complications <Jennifer WalterDuane Guzman ENGINEERING MODEL MAKER-C - Last Filed: 08/08/20 13:28> Status: Acute <Jennifer Guzman ENGINEERING MODEL MAKERDemarcusSharona - Last Filed: 08/08/20 13:28> Assessment and Plan: Blood sugars in the 200 Will continue Accu-Chek, sliding scale and hypoglycemic protocol. Will change sliding scale to high Continue diabetic diet <DESTINEY Rothman - Last Filed: 08/08/20 13:28> (9) DVT prophylaxis: Code(s): Z29.9 - Encounter for prophylactic measures, unspecified <DESTINEY Rothman - Last Filed: 08/08/20 13:28> Status: Acute <DESTINEY Rothman - Last Filed: 08/08/20 13:28> Assessment and Plan: continue Shanti
--- NOTE | 2020-08-08 10:52 | PC.NURSE ---
PT INC OF LARGE LIQUID, DARK BROWN BM. STACY CARE GIVEN. TURNED AND REPOSITIONED WITH MAX ASSIST OF 2. CONTINUES TO BE ALERT TO SELF ONLY. AT BEDSIDE.
[2020-08-08] MEDS: ALBUTEROL SULFATE (*SP) INHALER 8 PUFF INHALATION ×3 (11:19→21:10)
[2020-08-08 11:45] LABS: Glucose Point of Care 252 (65-105)
[2020-08-08 16:39] LABS: Glucose Point of Care 242 (65-105)
[2020-08-08] MEDS: PRAVASTATIN SODIUM 20 MG TABLET 80 MG PO (21:09)
[2020-08-08] MEDS: INSULIN GLARGINE (*BKC) 100 UNITS/ML 25 UNITS SUB-Q (21:12)
[2020-08-08 21:22] LABS: Glucose Point of Care 314 (65-105)
--- NOTE | 2020-08-08 22:28 | PC.NURSE ---
Patient resting quietly in bed. Restless at times. Sotelo patent and draining clear yellow urine. Bed alarm active.
[2020-08-09] MEDS: ALBUTEROL SULFATE (*SP) INHALER 8 PUFF INHALATION ×4 (05:30→20:41)
[2020-08-09 05:54] LABS: Basophils Absolute Auto 0.06 K/mm3 (0.00-0.10); Basophils Percent Auto 0.6 % (0.0-1.0); Eosinophils Absolute Auto 0.44 K/mm3 (0.02-0.50); Eosinophils Percent Auto 4.2 % (1.0-6.0); Hematocrit 43.8 % (37.0-46.0); Hemoglobin 14.8 g/dL (12.4-15.3); Immature Granulocyte Absolute 0.05 K/mm3 (0.00-0.00); Immature Granulocyte Percent A 0.5 % (0.0-0.0); Lymphocytes Absolute Auto 1.66 K/mm3 (1.10-4.50); Lymphocytes Percent Auto 15.7 % (18.0-42.0); Mean Corpuscular HGB Conc 33.8 g/dL (32.0-36.0); Mean Corpuscular Hemoglobin 30.5 pg (27.0-31.0); Mean Corpuscular Volume 90.1 fL (78.0-102.0); Mean Platelet Volume 10.1 fl (8.7-11.0); Monocytes Absolute Auto 0.92 K/mm3 (0.10-0.90); Monocytes Percent Auto 8.7 % (2.0-11.0); Neutrophils Absolute Auto 7.4 K/mm3 (1.7-7.2); Neutrophils Percent Auto 70.3 % (50.0-70.0); Platelet Count Result 289 K/mm3 (150-420); Red Blood Count 4.86 M/mm3 (4.70-6.10); Red Cell Distribution Width 12.4 % (11.6-14.4); White Blood Count 10.6 K/mm3 (4.8-10.8)
[2020-08-09 06:10] LABS: Alanine Aminotransferase 8 U/L (16-63); Albumin Level 2.8 g/dL (3.4-5.0); Alkaline Phosphatase 47 U/L (46-116); Anion Gap 9 mmol/L (8-16); Aspartate Amino Transferase 15 U/L (15-37); Bilirubin,Total 1.1 mg/dL (0.00-1.00); Blood Urea Nitrogen 11 mg/dL (7-18); Calcium 8.3 mg/dL (8.5-10.1); Carbon Dioxide 27 mmol/L (21-32); Chloride 98 mmol/L (98-108); Estimated CRCL calculation 71 ml/min; Estimated Glomerular Filt Rate > 60; Glucose 269 mg/dL (70-99); Magnesium 2.1 mg/dL (1.8-2.4); Osmolality Calculated 286 mOsm/kg (285-295); Potassium 2.8 mmol/L (3.5-5.1); Sodium 134 mmol/L (136-145); Total Protein 6.4 g/dL (6.4-8.2)
--- NOTE | 2020-08-09 06:43 | PC.NURSE ---
Dr. Ybarra notified of pt's low potassium value; No new orders at this time.
[2020-08-09 07:23] VITALS: BP 156/86; PULSE 79; RESP 22; TEMP 36.5; O2SAT 95
[2020-08-09] MEDS: FAMOTIDINE 20 MG TABLET PO (08:11)
[2020-08-09] MEDS: POTASSIUM CHLORIDE 20 MEQ TABLET 40 MEQ PO ×3 (08:13→11:50)
[2020-08-09 08:14] VITALS: PULSE 79
[2020-08-09] MEDS: lisinopriL 20 MG TABLET 40 MG PO (08:14)
[2020-08-09] MEDS: METOPROLOL SUCCINATE EXT REL 50 MG TABCR PO (08:14)
[2020-08-09] MEDS: ENOXAPARIN 40 MG/0.4 ML SYRINGE SUB-Q (08:15)
[2020-08-09] MEDS: hydroCHLOROthiazide 12.5 MG CAPSULE PO (08:15)
[2020-08-09] MEDS: ACETAMINOPHEN 325 MG TABLET 650 MG PO (08:15)
--- NOTE | 2020-08-09 10:18 | P.PN_ITS ---
Progress Note: A&P Assessment and Plan (1) Urinary tract infection: Code(s): N39.0 - Urinary tract infection, site not specified Status: Acute Assessment and Plan: * continue Zosyn 3.375 g day 3 Bactrim day 2 * UA culture with growth of enterococcus species sensitivity pending * WBC improving within normal limits 10.6 * continue Sotelo (2) Altered mental status: Code(s): R41.82 - Altered mental status, unspecified Status: Acute Assessment and Plan: * possible secondary to urinary tract infection vs dementia * resolve the underlining condition * ammonia level pending * possible ct of head if no improvement (3) Hyperglycemia: Code(s): R73.9 - Hyperglycemia, unspecified Status: Acute Assessment and Plan: * ? Continue insulin , accuchecks and sliding scale ? Will adjust medication as needed ? Continue diabetic diet ? Diabetic education * restarted patient Lantus at 25 units HS have increase insulin to 50 units at bedtime home dosing * blood sugars in the 200s-300s * refer to diabetes (4) Sepsis syndrome: Status: Acute Assessment and Plan: * resolved * possibly urosepsis * today patient's temperature 98.2? with a heart rate of 68 blood pressure 162/84 and respiratory rate of 20 * continue Zosyn and added Bactrim * on08/07/2020 temperature 99.7?, WBC 19.2, lactic acid 3.4, source urinary tract infection, heart rate 113, respiratory rate 14 to 18, (5) Electrolyte imbalance: Code(s): E87.8 - Other disorders of electrolyte and fluid balance, not elsewhere classified Status: Acute Assessment and Plan: * Potassium 2.8 * Received 80 mEq of potassium today * Will continue to monitor * Will start potassium 40 mEq daily (6) HTN (hypertension): Code(s): I10 - Essential (primary) hypertension Status: Acute Assessment and Plan: * Blood pressure elevated 156/86 * Continue hydralazine 12.5, metoprolol 50 mg p.o. daily increase lisinopril to 40 mg daily instead of 20 * Continue to monitor vital sign * Adjust medication as needed. (7) HLD (hyperlipidemia): Code(s): E78.5 - Hyperlipidemia, unspecified Status: Acute Assessment and Plan: * Continue statins (8) Diabetes mellitus: Code(s): E11.9 - Type 2 diabetes mellitus without complications Status: Acute Assessment and Plan: * Blood sugars in the 200-300 * Will continue Accu-Chek, sliding scale and hypoglycemic protocol. Will change sliding scale to high * Restarted Lantus 50 units at bedtime * Continue diabetic diet (9) DVT prophylaxis: Code(s): Z29.9 - Encounter for prophylactic measures, unspecified Status: Acute Assessment and Plan: * continue Lovenox Review of Systems Review of Systems: All systems reviewed & are unremarkable except as noted in HPI and below (10 point system reviewed) Exam Narrative: Exam Narrative: GENERAL: This is a well-nourished, well-developed patient, in no apparent distress. HEAD: normocephalic, atraumatic. EYES: PERRL. Sclera clear/white. Vision is grossly intact. EARS: External ears normal, auditory canals clear and without drainage, TMs normal without perforation. Hearing grossly intact. NOSE: External nose normal with no obvious nasal discharge, nares without redness, no rhinorrhea. THROAT: Mucous membranes moist, posterior pharynx clear. NECK: Neck supple, non-tender without lymphadenopathy, masses or thyromegaly. CARDIOV
--- NOTE | 2020-08-09 10:18 | WPDPN ---
Progress Note: A&P Assessment and Plan (1) Urinary tract infection: Code(s): N39.0 - Urinary tract infection, site not specified Status: Acute Assessment and Plan: continue Zosyn 3.375 g day 3 Bactrim day 2 UA culture with growth of enterococcus species sensitivity pending WBC improving within normal limits 10.6 continue Sotelo (2) Altered mental status: Code(s): R41.82 - Altered mental status, unspecified Status: Acute Assessment and Plan: possible secondary to urinary tract infection vs dementia resolve the underlining condition ammonia level pending possible ct of head if no improvement (3) Hyperglycemia: Code(s): R73.9 - Hyperglycemia, unspecified Status: Acute Assessment and Plan: ? Continue insulin , accuchecks and sliding scale ? Will adjust medication as needed ? Continue diabetic diet ? Diabetic education restarted patient Lantus at 25 units HS have increase insulin to 50 units at bedtime home dosing blood sugars in the 200s-300s refer to diabetes (4) Sepsis syndrome: Status: Acute Assessment and Plan: resolved possibly urosepsis today patient's temperature 98.2? with a heart rate of 68 blood pressure 162/84 and respiratory rate of 20 continue Zosyn and added Bactrim on08/07/2020 temperature 99.7?, WBC 19.2, lactic acid 3.4, source urinary tract infection, heart rate 113, respiratory rate 14 to 18, (5) Electrolyte imbalance: Code(s): E87.8 - Other disorders of electrolyte and fluid balance, not elsewhere classified Status: Acute Assessment and Plan: Potassium 2.8 Received 80 mEq of potassium today Will continue to monitor Will start potassium 40 mEq daily (6) HTN (hypertension): Code(s): I10 - Essential (primary) hypertension Status: Acute Assessment and Plan: Blood pressure elevated 156/86 Continue hydralazine 12.5, metoprolol 50 mg p.o. daily increase lisinopril to 40 mg daily instead of 20 Continue to monitor vital sign Adjust medication as needed. (7) HLD (hyperlipidemia): Code(s): E78.5 - Hyperlipidemia, unspecified Status: Acute Assessment and Plan: Continue statins (8) Diabetes mellitus: Code(s): E11.9 - Type 2 diabetes mellitus without complications Status: Acute Assessment and Plan: Blood sugars in the 200-300 Will continue Accu-Chek, sliding scale and hypoglycemic protocol. Will change sliding scale to high Restarted Lantus 50 units at bedtime Continue diabetic diet (9) DVT prophylaxis: Code(s): Z29.9 - Encounter for prophylactic measures, unspecified Status: Acute Assessment and Plan: continue Lovenox Review of Systems Review of Systems: All systems reviewed & are unremarkable except as noted in HPI and below (10 point system reviewed) Exam Narrative: Exam Narrative: GENERAL: This is a well-nourished, well-developed patient, in no apparent distress. HEAD: normocephalic, atraumatic. EYES: PERRL. Sclera clear/white. Vision is grossly intact. EARS: External ears normal, auditory canals clear and without drainage, TMs normal without perforation. Hearing grossly intact. NOSE: External nose normal with no obvious nasal discharge, nares without redness, no rhinorrhea. THROAT: Mucous membranes moist, posterior pharynx clear. NECK: Neck supple, non-tender without lymphadenopathy, masses or thyromegaly. CARDIOVASCULAR: Regular rate and rhythm without murmurs, gallops, or rubs. RESPIRATORY: Clear has improved from yesterday. GASTROINTESTINAL: Abdomen soft, non-tender, nondistended. Bowel sounds are active. No hepato-splenomegaly, or palpable masses. No guarding. SKIN: warm, intact with no suspicious lesions or rash, good texture and turgor. NEURO: awake, alert, and oriented to person, place and time. There were no obvious focal neurologic abnormalities. Steady gait EXTREMITIES: Normal rang
[2020-08-09 11:35] LABS: Glucose Point of Care 253 (65-105)
[2020-08-09 11:50] LABS: Ammonia 16 umol/L (11-32)
--- NOTE | 2020-08-09 15:49 | PC.NURSE ---
pt has soft brown bm, new pads applied, stat lock applied to tavares tubing, pt moved up in bed, hob up , legs up
[2020-08-09 16:00] VITALS: BP 163/100; PULSE 77; RESP 18; TEMP 37.1; O2SAT 95
[2020-08-09] MEDS: HALOPERIDOL LACTATE 5 MG/ML VIAL 3 MG IM (16:10)
[2020-08-09 17:09] LABS: Glucose Point of Care 285 (65-105)
[2020-08-09] MEDS: AMPICILLIN 1 GM/NS 50 ML 1 GM/50 ML BAG IVPB (17:29)
[2020-08-09] MEDS: PRAVASTATIN SODIUM 20 MG TABLET 80 MG PO (20:39)
[2020-08-09 20:48] LABS: Glucose Point of Care 196 (65-105)
[2020-08-09] MEDS: INSULIN GLARGINE (*BKC) 100 UNITS/ML 50 UNITS SUB-Q (20:58)
--- NOTE | 2020-08-09 23:07 | PM.EVENT ---
Event Note Event Note Event Note: I have examined the patient and reviewed the chart. I discussed the patient's care with Galdino Guzman APN and agree with her assessment and plan
[2020-08-09 23:23] VITALS: BP 158/77; PULSE 71; RESP 18; TEMP 36.4; O2SAT 93
--- NOTE | 2020-08-09 23:28 | PC.NURSE ---
Pt resting in bed and yelling out for . Attempted to reorient pt to time and place with minimal success. Pt's tavares continues to drain yellow urine.
[2020-08-10] MEDS: AMPICILLIN 1 GM/NS 50 ML 1 GM/50 ML BAG IVPB ×5 (00:02→23:57)
--- NOTE | 2020-08-10 00:11 | PC.NURSE ---
IV antibiotic infusing as ordered.
--- NOTE | 2020-08-10 02:15 | PC.NURSE ---
Pt asleep and no signs of discomfort noted.
--- NOTE | 2020-08-10 04:11 | PC.NURSE ---
Pt asleep and no signs of discomfort noted.
[2020-08-10 05:32] LABS: Hematocrit 45.8 % (37.0-46.0); Hemoglobin 15.4 g/dL (12.4-15.3); Mean Corpuscular HGB Conc 33.6 g/dL (32.0-36.0); Mean Corpuscular Hemoglobin 30.7 pg (27.0-31.0); Mean Corpuscular Volume 91.4 fL (78.0-102.0); Mean Platelet Volume 10.2 fl (8.7-11.0); Platelet Count Result 322 K/mm3 (150-420); Red Blood Count 5.01 M/mm3 (4.70-6.10); Red Cell Distribution Width 12.6 % (11.6-14.4); White Blood Count 16.1 K/mm3 (4.8-10.8)
[2020-08-10 05:49] LABS: Alanine Aminotransferase 25 U/L (16-63); Albumin Level 2.7 g/dL (3.4-5.0); Alkaline Phosphatase 46 U/L (46-116); Anion Gap 8 mmol/L (8-16); Aspartate Amino Transferase 19 U/L (15-37); Bilirubin,Total 1.1 mg/dL (0.00-1.00); Blood Urea Nitrogen 10 mg/dL (7-18); Calcium 8.3 mg/dL (8.5-10.1); Carbon Dioxide 27 mmol/L (21-32); Chloride 102 mmol/L (98-108); Estimated CRCL calculation 67 ml/min; Estimated Glomerular Filt Rate > 60; Glucose 185 mg/dL (70-99); Osmolality Calculated 288 mOsm/kg (285-295); Potassium 3.2 mmol/L (3.5-5.1); Sodium 137 mmol/L (136-145); Total Protein 6.4 g/dL (6.4-8.2)
[2020-08-10] MEDS: ALBUTEROL SULFATE (*SP) INHALER 8 PUFF INHALATION ×2 (06:23→21:26)
--- NOTE | 2020-08-10 07:03 | PC.NURSE ---
Pt incontinent of a large amount of mushy, brown stool. Pt cleaned, bed linens changed and pt turned and repositioned to comfort.
[2020-08-10 08:00] VITALS: BP 181/83; PULSE 87; RESP 20; TEMP 36.4; O2SAT 93
[2020-08-10] MEDS: ENOXAPARIN 40 MG/0.4 ML SYRINGE SUB-Q (09:28)
[2020-08-10] MEDS: hydroCHLOROthiazide 12.5 MG CAPSULE PO (09:28)
[2020-08-10 09:29] VITALS: PULSE 87
[2020-08-10] MEDS: lisinopriL 20 MG TABLET 40 MG PO (09:29)
[2020-08-10] MEDS: METOPROLOL SUCCINATE EXT REL 50 MG TABCR PO (09:29)
[2020-08-10] MEDS: POTASSIUM CHLORIDE 20 MEQ TABLET 40 MEQ PO ×2 (09:29→11:57)
[2020-08-10] MEDS: FAMOTIDINE 20 MG TABLET PO (09:29)
--- NOTE | 2020-08-10 11:06 | P.PN_ITS ---
Progress Note: A&P Assessment and Plan (1) Urinary tract infection: Code(s): N39.0 - Urinary tract infection, site not specified Status: Acute Assessment and Plan: * Started ampicillin yesterday. According to sensitivity bacteria sensitive to ampicillin. Also restarted Bactrim due to worsening WBCs * UA culture with growth of enterococcus species sensitivity complete * WBC worsened from yesterday. We will repeat in the a.m. * continue Sotelo (2) Altered mental status: Code(s): R41.82 - Altered mental status, unspecified Status: Acute Assessment and Plan: * possible secondary to urinary tract infection vs dementia * resolve the underlining condition * ammonia level within normal limits * CT of the head pain (3) Hyperglycemia: Code(s): R73.9 - Hyperglycemia, unspecified Status: Acute Assessment and Plan: * ? Continue insulin , accuchecks and sliding scale. Increase ? Will adjust medication as needed ? Continue diabetic diet ? Diabetic education * restarted patient Lantus at 25 units HS have increase insulin to 50 units at bedtime home dosing * blood sugars in the 200s * refer to diabetes (4) Sepsis syndrome: Status: Acute Assessment and Plan: * resolved * possibly urosepsis * today patient's temperature 98.2? with a heart rate of 68 blood pressure 162/84 and respiratory rate of 20 * continue Zosyn and added Bactrim * on08/07/2020 temperature 99.7?, WBC 19.2, lactic acid 3.4, source urinary tract infection, heart rate 113, respiratory rate 14 to 18, (5) Electrolyte imbalance: Code(s): E87.8 - Other disorders of electrolyte and fluid balance, not elsewhere classified Status: Acute Assessment and Plan: * Potassium 3.2 * Patient received potassium 80 mEq today * Will continue to monitor (6) HTN (hypertension): Code(s): I10 - Essential (primary) hypertension Status: Acute Assessment and Plan: * Blood pressure elevated 181/83 * Continue hydralazine 12.5, increased metoprolol 75mg p.o. daily increase lisinopril to 40 mg daily instead of 20 * Continue to monitor vital sign * Adjust medication as needed. (7) HLD (hyperlipidemia): Code(s): E78.5 - Hyperlipidemia, unspecified Status: Acute Assessment and Plan: * Continue statins (8) Diabetes mellitus: Code(s): E11.9 - Type 2 diabetes mellitus without complications Status: Acute Assessment and Plan: * Blood sugars in the 200-300 * Will continue Accu-Chek, sliding scale and hypoglycemic protocol. Will change sliding scale to high * Restarted Lantus 50 units at bedtime * Continue diabetic diet (9) DVT prophylaxis: Code(s): Z29.9 - Encounter for prophylactic measures, unspecified Status: Acute Assessment and Plan: * continue Lovenox Review of Systems Review of Systems: All systems reviewed & are unremarkable except as noted in HPI and below (10 point system reviewed) ROS unobtainable: Yes unobtainable due to mental status Exam Narrative: Exam Narrative: GENERAL: This is a well-nourished, well-developed patient, in no apparent distress. HEAD: normocephalic, atraumatic. EYES: PERRL. Sclera clear/white. Vision is grossly intact. EARS: External ears normal, auditory canals clear and without drainage, TMs normal without perforation. Hearing grossly intact. NOSE: External nose normal with no obvious nasal discharge, nares without redness, no rhinorrhea.
--- NOTE | 2020-08-10 11:06 | WPDPN ---
Progress Note: A&P Assessment and Plan (1) Urinary tract infection: Code(s): N39.0 - Urinary tract infection, site not specified Status: Acute Assessment and Plan: Started ampicillin yesterday. According to sensitivity bacteria sensitive to ampicillin. Also restarted Bactrim due to worsening WBCs UA culture with growth of enterococcus species sensitivity complete WBC worsened from yesterday. We will repeat in the a.m. continue Sotelo (2) Altered mental status: Code(s): R41.82 - Altered mental status, unspecified Status: Acute Assessment and Plan: possible secondary to urinary tract infection vs dementia resolve the underlining condition ammonia level within normal limits CT of the head pain (3) Hyperglycemia: Code(s): R73.9 - Hyperglycemia, unspecified Status: Acute Assessment and Plan: ? Continue insulin , accuchecks and sliding scale. Increase ? Will adjust medication as needed ? Continue diabetic diet ? Diabetic education restarted patient Lantus at 25 units HS have increase insulin to 50 units at bedtime home dosing blood sugars in the 200s refer to diabetes (4) Sepsis syndrome: Status: Acute Assessment and Plan: resolved possibly urosepsis today patient's temperature 98.2? with a heart rate of 68 blood pressure 162/84 and respiratory rate of 20 continue Zosyn and added Bactrim on08/07/2020 temperature 99.7?, WBC 19.2, lactic acid 3.4, source urinary tract infection, heart rate 113, respiratory rate 14 to 18, (5) Electrolyte imbalance: Code(s): E87.8 - Other disorders of electrolyte and fluid balance, not elsewhere classified Status: Acute Assessment and Plan: Potassium 3.2 Patient received potassium 80 mEq today Will continue to monitor (6) HTN (hypertension): Code(s): I10 - Essential (primary) hypertension Status: Acute Assessment and Plan: Blood pressure elevated 181/83 Continue hydralazine 12.5, increased metoprolol 75mg p.o. daily increase lisinopril to 40 mg daily instead of 20 Continue to monitor vital sign Adjust medication as needed. (7) HLD (hyperlipidemia): Code(s): E78.5 - Hyperlipidemia, unspecified Status: Acute Assessment and Plan: Continue statins (8) Diabetes mellitus: Code(s): E11.9 - Type 2 diabetes mellitus without complications Status: Acute Assessment and Plan: Blood sugars in the 200-300 Will continue Accu-Chek, sliding scale and hypoglycemic protocol. Will change sliding scale to high Restarted Lantus 50 units at bedtime Continue diabetic diet (9) DVT prophylaxis: Code(s): Z29.9 - Encounter for prophylactic measures, unspecified Status: Acute Assessment and Plan: continue Lovenox Review of Systems Review of Systems: All systems reviewed & are unremarkable except as noted in HPI and below (10 point system reviewed) ROS unobtainable: Yes unobtainable due to mental status Exam Narrative: Exam Narrative: GENERAL: This is a well-nourished, well-developed patient, in no apparent distress. HEAD: normocephalic, atraumatic. EYES: PERRL. Sclera clear/white. Vision is grossly intact. EARS: External ears normal, auditory canals clear and without drainage, TMs normal without perforation. Hearing grossly intact. NOSE: External nose normal with no obvious nasal discharge, nares without redness, no rhinorrhea. THROAT: Mucous membranes moist, posterior pharynx clear. NECK: Neck supple, non-tender without lymphadenopathy, masses or thyromegaly. CARDIOVASCULAR: Regular rate and rhythm without murmurs, gallops, or rubs. RESPIRATORY: Clear has improved GASTROINTESTINAL: Abdomen soft, non-tender, nondistended. Bowel sounds are active. No hepato-splenomegaly, or palpable masses. No guarding. SKIN: warm, intact with no suspicious lesions or rash, good texture and turgor. NEURO: awake, alert, a
[2020-08-10 11:44] LABS: Glucose Point of Care 234 (65-105)
[2020-08-10] MEDS: ACETAMINOPHEN 325 MG TABLET 650 MG PO ×2 (11:57→21:24)
--- NOTE | 2020-08-10 15:00 | PC.NURSE ---
Patient tranported off of floor for CT
[2020-08-10 16:00] VITALS: BP 142/87; PULSE 76; RESP 20; TEMP 36.8; O2SAT 93
[2020-08-10 16:25] LABS: Glucose Point of Care 177 (65-105)
[2020-08-10 21:04] LABS: Glucose Point of Care 226 (65-105)
[2020-08-10] MEDS: PRAVASTATIN SODIUM 20 MG TABLET 80 MG PO (21:24)
[2020-08-10] MEDS: INSULIN GLARGINE (*BKC) 100 UNITS/ML 50 UNITS SUB-Q (21:29)
[2020-08-11] VITALS: BP 128/54; PULSE 79; RESP 18; TEMP 36.2; O2SAT 95
[2020-08-11] MEDS: AMPICILLIN 1 GM/NS 50 ML 1 GM/50 ML BAG IVPB (05:47)
[2020-08-11] MEDS: ALBUTEROL SULFATE (*SP) INHALER 8 PUFF INHALATION ×3 (05:52→22:08)
[2020-08-11 07:35] LABS: Glucose Point of Care 205 (65-105)
[2020-08-11 07:42] VITALS: BP 144/76; PULSE 82; RESP 18; TEMP 36.8; O2SAT 93
[2020-08-11 08:07] LABS: Hematocrit 43.8 % (37.0-46.0); Hemoglobin 14.7 g/dL (12.4-15.3); Mean Corpuscular HGB Conc 33.6 g/dL (32.0-36.0); Mean Corpuscular Hemoglobin 30.4 pg (27.0-31.0); Mean Corpuscular Volume 90.5 fL (78.0-102.0); Mean Platelet Volume 10.2 fl (8.7-11.0); Platelet Count Result 321 K/mm3 (150-420); Red Blood Count 4.84 M/mm3 (4.70-6.10); Red Cell Distribution Width 12.7 % (11.6-14.4)
[2020-08-11 08:32] LABS: Alanine Aminotransferase 27 U/L (16-63); Albumin Level 2.8 g/dL (3.4-5.0); Alkaline Phosphatase 57 U/L (46-116); Anion Gap 11 mmol/L (8-16); Aspartate Amino Transferase 12 U/L (15-37); Bilirubin,Total 1.3 mg/dL (0.00-1.00); Blood Urea Nitrogen 10 mg/dL (7-18); Calcium 8.1 mg/dL (8.5-10.1); Carbon Dioxide 23 mmol/L (21-32); Chloride 101 mmol/L (98-108); Estimated CRCL calculation 73 ml/min; Estimated Glomerular Filt Rate > 60; Glucose 216 mg/dL (70-99); Magnesium 2.1 mg/dL (1.8-2.4); Osmolality Calculated 286 mOsm/kg (285-295); Potassium 3.6 mmol/L (3.5-5.1); Sodium 135 mmol/L (136-145)
--- NOTE | 2020-08-11 09:14 | P.PN_ITS ---
Progress Note: A&P Assessment and Plan (1) Urinary tract infection: Code(s): N39.0 - Urinary tract infection, site not specified Status: Acute Assessment and Plan: * Switch antibiotic to vancomycin due to patient's increased WBCs * UA culture with growth of enterococcus species sensitivity complete * WBC worsened from yesterday. We will repeat in the a.m. 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 Continue insulin , accuchecks and sliding scale. Increase ? Will adjust medication as needed ? Continue diabetic diet ? Diabetic education * restarted patient Lantus at 25 units HS have increase insulin to 50 units at bedtime home dosing * blood sugars in the 200s improving * refer to diabetes (4) Sepsis syndrome: Status: Acute Assessment and Plan: * resolved * possibly urosepsis * today patient's temperature 98.2? with a heart rate of 68 blood pressure 162/84 and respiratory rate of 20 * continue Zosyn and added Bactrim * on08/07/2020 temperature 99.7?, WBC 19.2, lactic acid 3.4, source urinary tract infection, heart rate 113, respiratory rate 14 to 18, (5) Electrolyte imbalance: Code(s): E87.8 - Other disorders of electrolyte and fluid balance, not elsewhere classified Status: Acute Assessment and Plan: * Potassium within normal limit * Patient received potassium 80 mEq today * Will continue to monitor (6) HTN (hypertension): Code(s): I10 - Essential (primary) hypertension Status: Acute Assessment and Plan: * Blood pressure elevated 144/76 * Continue hydralazine 12.5, increased metoprolol 75mg p.o. daily increase lisinopril to 40 mg daily instead of 20 * Continue to monitor vital sign * Adjust medication as needed. (7) HLD (hyperlipidemia): Code(s): E78.5 - Hyperlipidemia, unspecified Status: Acute Assessment and Plan: * Continue statins (8) Diabetes mellitus: Code(s): E11.9 - Type 2 diabetes mellitus without complications Status: Acute Assessment and Plan: * Blood sugars in the 200-300 * Will continue Accu-Chek, sliding scale and hypoglycemic protocol. Will change sliding scale to high * Restarted Lantus 50 units at bedtime * Continue diabetic diet (9) DVT prophylaxis: Code(s): Z29.9 - Encounter for prophylactic measures, unspecified Status: Acute Assessment and Plan: * continue Lovenox Review of Systems Review of Systems: All systems reviewed & are unremarkable except as noted in HPI and below (10 point system review) Exam Narrative: Exam Narrative: GENERAL: This is a well-nourished, well-developed patient, in no apparent distress. HEAD: normocephalic, atraumatic. EYES: PERRL. Sclera clear/white. Vision is grossly intact. EARS: External ears normal, auditory canals clear and without drainage, TMs normal without perforation. Hearing grossly intact. NOSE: External nose n
--- NOTE | 2020-08-11 09:14 | WPDPN ---
Progress Note: A&P Assessment and Plan (1) Urinary tract infection: Code(s): N39.0 - Urinary tract infection, site not specified Status: Acute Assessment and Plan: Switch antibiotic to vancomycin due to patient's increased WBCs UA culture with growth of enterococcus species sensitivity complete WBC worsened from yesterday. We will repeat in the a.m. 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 Continue insulin , accuchecks and sliding scale. Increase ? Will adjust medication as needed ? Continue diabetic diet ? Diabetic education restarted patient Lantus at 25 units HS have increase insulin to 50 units at bedtime home dosing blood sugars in the 200s improving refer to diabetes (4) Sepsis syndrome: Status: Acute Assessment and Plan: resolved possibly urosepsis today patient's temperature 98.2? with a heart rate of 68 blood pressure 162/84 and respiratory rate of 20 continue Zosyn and added Bactrim on08/07/2020 temperature 99.7?, WBC 19.2, lactic acid 3.4, source urinary tract infection, heart rate 113, respiratory rate 14 to 18, (5) Electrolyte imbalance: Code(s): E87.8 - Other disorders of electrolyte and fluid balance, not elsewhere classified Status: Acute Assessment and Plan: Potassium within normal limit Patient received potassium 80 mEq today Will continue to monitor (6) HTN (hypertension): Code(s): I10 - Essential (primary) hypertension Status: Acute Assessment and Plan: Blood pressure elevated 144/76 Continue hydralazine 12.5, increased metoprolol 75mg p.o. daily increase lisinopril to 40 mg daily instead of 20 Continue to monitor vital sign Adjust medication as needed. (7) HLD (hyperlipidemia): Code(s): E78.5 - Hyperlipidemia, unspecified Status: Acute Assessment and Plan: Continue statins (8) Diabetes mellitus: Code(s): E11.9 - Type 2 diabetes mellitus without complications Status: Acute Assessment and Plan: Blood sugars in the 200-300 Will continue Accu-Chek, sliding scale and hypoglycemic protocol. Will change sliding scale to high Restarted Lantus 50 units at bedtime Continue diabetic diet (9) DVT prophylaxis: Code(s): Z29.9 - Encounter for prophylactic measures, unspecified Status: Acute Assessment and Plan: continue Lovenox Review of Systems Review of Systems: All systems reviewed & are unremarkable except as noted in HPI and below (10 point system review) Exam Narrative: Exam Narrative: GENERAL: This is a well-nourished, well-developed patient, in no apparent distress. HEAD: normocephalic, atraumatic. EYES: PERRL. Sclera clear/white. Vision is grossly intact. EARS: External ears normal, auditory canals clear and without drainage, TMs normal without perforation. Hearing grossly intact. NOSE: External nose normal with no obvious nasal discharge, nares without redness, no rhinorrhea. THROAT: Mucous membranes moist, posterior pharynx clear. NECK: Neck supple, non-tender without lymphadenopathy, masses or thyromegaly. CARDIOVASCULAR: Regular rate and rhythm without murmurs, gallops, or rubs. RESPIRATORY: Clear has improved GASTROINTESTINAL: Abdomen soft, non-tender, nondistended. Bowel sounds are active. No hepato-splenomegaly, or palpable masses. No guarding. SKIN: warm, intact with
[2020-08-11] MEDS: POTASSIUM CHLORIDE 20 MEQ TABLET 40 MEQ PO (09:42)
[2020-08-11 09:43] VITALS: PULSE 82
[2020-08-11] MEDS: METOPROLOL SUCCINATE EXT REL 25 MG, METOPROLOL SUCCINATE EXT REL 50 MG 75 MG PO (09:43)
[2020-08-11] MEDS: FAMOTIDINE 20 MG TABLET PO (09:43)
[2020-08-11] MEDS: lisinopriL 20 MG TABLET 40 MG PO (09:43)
[2020-08-11] MEDS: ENOXAPARIN 40 MG/0.4 ML SYRINGE SUB-Q (09:44)
[2020-08-11] MEDS: hydroCHLOROthiazide 12.5 MG CAPSULE PO (09:44)
[2020-08-11] MEDS: LORazepam INJ (*CRX) 2 MG/ML VIAL 0.5 MG IV PUSH (10:00)
[2020-08-11 11:33] LABS: Glucose Point of Care 266 (65-105)
--- NOTE | 2020-08-11 12:45 | PC.NURSE ---
Patient taken down to CT via bed by [employer].
--- NOTE | 2020-08-11 13:28 | P.TS_ITS ---
Transfer Discharge Sum: Prov Provider Date of admission: 08/06/20 17:20 Primary care physician: Mike Price MD Admitting clinician: Corina Holbrook MD DS: Admitting Diagnosis Admitting Diagnosis Admitting Diagnosis: AMS UTI SEPSIS head mass DS: Discharge Diagnosis Discharge Diagnosis (1) Urinary tract infection: Code(s): N39.0 - Urinary tract infection, site not specified Status: Acute Assessment and Plan: * Switch antibiotic to vancomycin due to patient's increased WBCs * UA culture with growth of enterococcus species sensitivity complete * WBC worsened from yesterday. 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 Continue insulin , accuchecks and sliding scale. Increase ? Will adjust medication as needed ? Continue diabetic diet ? Diabetic education * restarted patient Lantus at 25 units HS have increase insulin to 50 units at bedtime home dosing * blood sugars in the 200s improving * refer to diabetes (4) Sepsis syndrome: Status: Acute Assessment and Plan: * resolved * possibly urosepsis * today patient's temperature 98.2? with a heart rate of 68 blood pressure 162/84 and respiratory rate of 20 * continue Zosyn and added Bactrim * on08/07/2020 temperature 99.7?, WBC 19.2, lactic acid 3.4, source urinary tract infection, heart rate 113, respiratory rate 14 to 18, (5) Electrolyte imbalance: Code(s): E87.8 - Other disorders of electrolyte and fluid balance, not elsewhere classified Status: Acute Assessment and Plan: * Potassium within normal limit * Patient received potassium 80 mEq today * Will continue to monitor (6) HTN (hypertension): Code(s): I10 - Essential (primary) hypertension Status: Acute Assessment and Plan: * Blood pressure elevated 144/76 * Continue hydralazine 12.5, increased metoprolol 75mg p.o. daily increase lisinopril to 40 mg daily instead of 20 * Continue to monitor vital sign * Adjust medication as needed. (7) HLD (hyperlipidemia): Code(s): E78.5 - Hyperlipidemia, unspecified Status: Acute Assessment and Plan: * Continue statins (8) Diabetes mellitus: Code(s): E11.9 - Type 2 diabetes mellitus without complications Status: Acute Assessment and Plan: * Blood sugars in the 200-300 * Will continue Accu-Chek, sliding scale and hypoglycemic protocol. Will change sliding scale to high * Restarted Lantus 50 units at bedtime * Continue diabetic diet (9) DVT prophylaxis: Code(s): Z29.9 - Encounter for prophylactic measures, unspecified Status: Acute Assessment and Plan: * continue Lovenox Transfer Discharge Sum: Med Medications Active and Home Medications: Home Medications felodipine 10 mg PO DAILY 12/30/19 [History Confirmed 08/06/20] insulin aspart U-100 [Novolog U-100 Insulin aspart] 16 u
--- NOTE | 2020-08-11 13:28 | PM.TDS ---
Transfer Discharge Sum: Prov Provider Date of admission: 08/06/20 17:20 Primary care physician: Mike Price MD Admitting clinician: Corina Holbrook MD DS: Admitting Diagnosis Admitting Diagnosis Admitting Diagnosis: AMS UTI SEPSIS head mass DS: Discharge Diagnosis Discharge Diagnosis (1) Urinary tract infection: Code(s): N39.0 - Urinary tract infection, site not specified Status: Acute Assessment and Plan: Switch antibiotic to vancomycin due to patient's increased WBCs UA culture with growth of enterococcus species sensitivity complete WBC worsened from yesterday. 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 Continue insulin , accuchecks and sliding scale. Increase ? Will adjust medication as needed ? Continue diabetic diet ? Diabetic education restarted patient Lantus at 25 units HS have increase insulin to 50 units at bedtime home dosing blood sugars in the 200s improving refer to diabetes (4) Sepsis syndrome: Status: Acute Assessment and Plan: resolved possibly urosepsis today patient's temperature 98.2? with a heart rate of 68 blood pressure 162/84 and respiratory rate of 20 continue Zosyn and added Bactrim on08/07/2020 temperature 99.7?, WBC 19.2, lactic acid 3.4, source urinary tract infection, heart rate 113, respiratory rate 14 to 18, (5) Electrolyte imbalance: Code(s): E87.8 - Other disorders of electrolyte and fluid balance, not elsewhere classified Status: Acute Assessment and Plan: Potassium within normal limit Patient received potassium 80 mEq today Will continue to monitor (6) HTN (hypertension): Code(s): I10 - Essential (primary) hypertension Status: Acute Assessment and Plan: Blood pressure elevated 144/76 Continue hydralazine 12.5, increased metoprolol 75mg p.o. daily increase lisinopril to 40 mg daily instead of 20 Continue to monitor vital sign Adjust medication as needed. (7) HLD (hyperlipidemia): Code(s): E78.5 - Hyperlipidemia, unspecified Status: Acute Assessment and Plan: Continue statins (8) Diabetes mellitus: Code(s): E11.9 - Type 2 diabetes mellitus without complications Status: Acute Assessment and Plan: Blood sugars in the 200-300 Will continue Accu-Chek, sliding scale and hypoglycemic protocol. Will change sliding scale to high Restarted Lantus 50 units at bedtime Continue diabetic diet (9) DVT prophylaxis: Code(s): Z29.9 - Encounter for prophylactic measures, unspecified Status: Acute Assessment and Plan: continue Lovenox Transfer Discharge Sum: Med Medications Active and Home Medications: Home Medications felodipine 10 mg PO DAILY 12/30/19 [History Confirmed 08/06/20] insulin aspart U-100 [Novolog U-100 Insulin aspart] 16 unit SUBCUT TIDWM 12/30/19 [History Confirmed 08/06/20] lisinopril-hydrochlorothiazide 2 tablet PO DAILY 12/30/19 [History Confirmed 08/06/20] metformin 1,000 mg PO BID 12/30/19 [History Confirmed 08/06/20] metoprolol succinate 50 mg PO DAILY 12/30/19 [History Confirmed 08/06/20] pravastatin 80 mg PO HS 12/30/19 [History Confirmed 08/06/20] Lantus U-100 Insulin 50 unit SUBCUT HS 08/06/20 [History Confirmed 08/06/20] famotidine 20 mg PO DAILY 08/06/20 [History Confirmed 08/06/20]
--- NOTE | 2020-08-11 13:45 | PCOTNOTE ---
OT on hold as patient is in process of being transferred to another medical facility. [place]
--- NOTE | 2020-08-11 14:31 | PM.EVENT ---
Event Note Event Note Event Note: I have examined the patient and reviewed the chart. I discussed the patient's care with Galdino Guzman APN and agree with her assessment and plan including transfer for Oncology.
[2020-08-11 16:00] VITALS: BP 171/75; PULSE 84; RESP 20; TEMP 36.2; O2SAT 95
[2020-08-11 16:50] LABS: Glucose Point of Care 191 (65-105)
[2020-08-11] MEDS: BENZONATATE 100 MG CAPSULE 200 MG PO (17:55)
[2020-08-11] MEDS: ACETAMINOPHEN 325 MG TABLET 650 MG PO (19:52)
--- NOTE | 2020-08-11 20:00 | PC.NURSE ---
PT , WHO IS ALSO A PATIENT IS AT BEDSIDE. PT C/O HEADACHE TO . APAP GIVEN. PT COOPERATIVE AND CALM. SWEATING, BROUGHT FAN TO ROOM, STATES, HE IS A HOT BOX ALL THE TIME. PT STATES, OH THAT FEELS SO GOOD. APPEARS RELAXED AND CONTENT.
[2020-08-11 20:05] LABS: Glucose Point of Care 235 (65-105)
[2020-08-11] MEDS: PRAVASTATIN SODIUM 20 MG TABLET 80 MG PO (20:05)
[2020-08-11] MEDS: guaiFENesin 12 HR 600 MG TABCR PO (20:05)
[2020-08-11] MEDS: INSULIN GLARGINE (*BKC) 100 UNITS/ML 50 UNITS SUB-Q (20:06)
[2020-08-11 20:44] VITALS: BP 147/73; PULSE 78; RESP 16; TEMP 36.6; O2SAT 98
[2020-08-11 21:50] VITALS: BP 111/46; PULSE 56; RESP 16; TEMP 36.3; O2SAT 95
--- NOTE | 2020-08-11 21:57 | PC.NURSE ---
PT SLEEPING VERY WELL. CALL RECEIVED FROM NURSE [facility] THAT PATIENT HAS BED READY, REPORT GIVEN TO RODY. PT WILL BE GOING TO [facility]G. 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 PT HAS VERY LITTLE BELONGINGS, PLACED IN BAG. TRANSFER PAPERWORK TOGETHER. [facility] NOTIFIED OF NEED FOR TRANSPORT.
--- NOTE | 2020-08-11 22:04 | PC.NURSE ---
[facility] RETURNED CALL, STATES ONLY ONE RIG IN SERVICE, THEY HAVE TO WAIT FOR A RETURN FROM [facility] [place], ESTIMATED ETA [id number]. PT CONTINUES TO REST WELL.
--- NOTE | 2020-08-11 23:30 | PC.NURSE ---
Ambulance here to take pt to [facility]. Belongings sent with patient.
--- NOTE | 2020-08-12 01:39 | PC.NURSE ---
Ambulance here to take pt to [facility]. Belongings sent with patient.
--- NOTE | 2020-08-12 02:24 | PC.NURSE ---
Pt's chart faxed to Dr. Snow at [facility] per her request.
[2020-08-17 04:12] LABS: Carcinoembryonic Antigen 3.1 ng/mL (0.0-2.4)
== END 2020-08-11 23:31 | disposition short-term general hospital (02) | DRG 689 ==
LOC: CHSED 17:20 → CHS2ND 17:31
PROVIDERS: Nurse Practitioner; Nurse Practitioner Family; Admitting Provider Emergency Medicine; Emergency Provider Emergency Medicine; PCP Family Medicine; Visit Provider Emergency Medicine
DX: N39.0 Urinary tract infection, site not specified (principal); A41.9 Sepsis, unspecified organism; E87.8 Other disorders of electrolyte and fluid balance, not elsewhere classified; M89.9 Disorder of bone, unspecified; I10 Essential (primary) hypertension; E11.65 Type 2 diabetes mellitus with hyperglycemia; E78.5 Hyperlipidemia, unspecified; K80.20 Calculus of gallbladder without cholecystitis without obstruction; R41.82 Altered mental status, unspecified; B95.2 Enterococcus as the cause of diseases classified elsewhere; Z89.511 Acquired absence of right leg below knee
CPT/HCPCS: 36415; 36600; 70450; 70460; 70491; 71045; 71260; 74177; 80048; 80053; 81001; 82010; 82140; 82378; 82805; 83605; 83735; 85025; 85027; 85610; 85730; 86140; 87040; 87077; 87086; 87088; 87186; 87324; 93005; 96361; 96372; 96374; 96375; 97110; 97162; 97166; 97530; 97535; 99285; A9270; J0290; J1630; J1650; J1815; J2060; J2405; J2543; J3370; J7030; Q9965

== ENCOUNTER 2020-08-22 20:32 | Inpatient (IN) | payer MEDICARE, MEDICAID, SELFPAY ==
--- NOTE | ~2020-08-22 | CT_ITS ---
EXAMINATION: CT brain wo con EXAM DATE: 08/22/2020 21:55 INDICATION: confusion, unresponsive, H/O brain tumor w/ mets . TECHNIQUE: Spiral CT of the head was performed without contrast. Axial, coronal and sagittal images were reviewed. The dose-length product (DLP) for this examination was 983.67 mGy-cm. The exposure w as tailored according to patient size, and iterative reconstruction (ASIR) was used as additional dos e reduction technique. Comparison is made to prior examination from 08/10/2020. FINDINGS: Previously seen left frontal extra-axial 4.4 cm mass is less well visualized on this noncon trast study, but there is some osseous change of the greater sphenoid wing from invasion of this by t he mass. This also extends into the left orbit causing some proptosis. Probably not significantly magaly nged compared to prior study. There is no acute intracranial hemorrhage. No evidence of acute infarction. There is ventricular prom inence out of proportion to sulci which is suspected most likely central atrophy rather than hydrocep halus. Normal pressure hydrocephalus cannot be excluded (clinical triad ataxia/gait disturbance, dem entia, urinary incontinence). There is moderate microangiopathy. No extra-axial collections. There is right frontal scalp swelling which is new compared to prior study, probably contusion. IMPRESSION: 1. Left frontal extra-axial mass with calvarial, orbital invasion, unchanged. 2. Atrophy and microangiopathy. 3. Right frontal scalp hematoma. 4. No acute intracranial findings. Reviewed, dictated and finalized at location A.
--- NOTE | 2020-08-22 20:38 | ECG_ITS ---
Measurements Intervals [place] Rate: 117 P: 50 WA: 153 QRS: 34 QRSD: 75 T: 24 QT: 330 QTc: 462 Interpretive Statements SINUS TACHYCARDIA NONSPECIFIC ST & T-WAVE ABNORMALITY- ANT/INF LEADS ABNORMAL ECG Electronically Signed On 08-23-2020 6:47:16 CDT by Michael Medina D.O.
--- NOTE | 2020-08-22 20:43 | ED.AMS ---
HPI - Altered Mental Status General Chief Complaint: Altered Mental Status Stated Complaint: amb Time Seen by Provider: 08/22/20 20:37 Source: EMS Mode of arrival: EMS Limitations: altered mental status History of Present Illness HPI narrative: 75-year-old man with a history of a brain tumor, type 2 diabetes, and recent hospitalization for UTI comes in by ambulance today for unresponsiveness. Patient's states that night before last he fell out of bed and she was unable to get him onto the bed again and the patient stated he was going to stay there. She states that all day yesterday he was awake and alert and moving but this morning he was moving less. she states that she noticed he was breathing faster. This evening she called EMS to help him get into bed and they found him unresponsive with a glucose >600. She states that he had no complaints prior to his fall and had no chest pain, difficulty breathing or fever. Patient's states that after he was transferred to [facility], he saw several doctors some of whom recommended hospice care. Patient was uncharacteristically combative with the staff and the patient was concerned that they were trying to kill him. He had also stated that he wanted to go home because he did not want to in the hospital. He had spent 6 weeks in hospital after an accident in the and he did not want to go through that again. MD complaint: altered mental status Onset (ago): day(s) (2) Timing confirmed by: spouse Severity: severe Consistency of symptoms: getting Worse Context: diabetes Associated symptoms: shortness of breath Treatments prior to arrival: IV fluid, oxygen ( And nasal trumpet) and other Related Data Home Medications Medication Instructions Recorded Confirmed felodipine 10 mg PO DAILY 12/30/19 08/22/20 insulin aspart U-100 [Novolog 16 unit SUBCUT TIDWM 12/30/19 08/22/20 U-100 Insulin aspart] metformin 1,000 mg PO BID 12/30/19 08/22/20 pravastatin 80 mg PO HS 12/30/19 08/22/20 Lantus U-100 Insulin 50 unit SUBCUT HS 08/06/20 08/22/20 famotidine 20 mg PO DAILY 08/06/20 08/22/20 hydrochlorothiazide 25 mg PO QAM 08/22/20 08/22/20 Allergies Allergy/AdvReac Type Severity Reaction Status Date / Time No Known Allergies Allergy Verified 08/22/20 21:14 Review of Systems Review of Systems: ROS unobtainable: Yes unobtainable due to mental status PMFSH Past Medical History Medical History Brain tumor Diabetes mellitus HLD (hyperlipidemia) HTN (hypertension) Surgical History Surgical History Hx of BKA Family History Family History Father Cancer Mother Cancer Social History Social History Smoking status: Former smoker Tobacco type: cigarettes, pipe and cigars Second hand tobacco smoke exposure: Yes Alcohol intake: current Drinks per week: 6 Substance use: unknown Substance use type: does not use Gender identity (if verbalized by the patient): Male Spiritual care concerns: No Agree to blood products: Yes Exam Const: Other: tachypneic with intermittently snoring. Increased work of breathing without stridor. intermittently spontaneously moves his head in arms and moans. Patient does not alert, localized or vocalize with pain HENMT: Other: Erythema to the right forehead and cheek with thick eye mattering bilaterally. Dry oral mucous membranes. Pupils 2 mm and minimally reactive. Mild left eye proptosis Chest: Other: Erythema over right mid-chest and to a smaller extent on the left chest. Resp: Effort & Inspection: labored and retractions Auscultation: clear to auscultation bilaterally, no rales, no rhonchi, no wheezes and diminished lung sounds on the right in the lower lung mckeon Cardio: Rate: tachycardic
[2020-08-22] MEDS: SODIUM CHLORIDE 0.9% IV 1,000 ML 999 ML IV CONT (20:45)
[2020-08-22 20:59] LABS: HCO3 ABG 19.6 mmol/L (23-29); Oxygen Content ABG 21.6 %vol (16.0-22.0); Oxygen Saturation ABG 96.9 % (95-97); Oxyhemoglobin 95.9 % (94-100); PCO2 ABG 29.5 mmHg (35-45); pH ABG 7.44 (7.35-7.45)
[2020-08-22 21:00] VITALS: BP 154/72; PULSE 112; RESP 32; O2SAT 97
[2020-08-22 21:01] VITALS: BP 139/78; PULSE 111; RESP 32; TEMP 36.7; O2SAT 98
[2020-08-22 21:03] LABS: Device NASAL CANNULA; Hematocrit 48.8 % (37.0-46.0); Hemoglobin 16.3 g/dL (12.4-15.3); Mean Corpuscular HGB Conc 33.4 g/dL (32.0-36.0); Mean Corpuscular Hemoglobin 31.2 pg (27.0-31.0); Mean Corpuscular Volume 93.5 fL (78.0-102.0); Mean Platelet Volume 10.5 fl (8.7-11.0); Modified Allen's Test Pass; Platelet Count Result 399 K/mm3 (150-420); Red Blood Count 5.22 M/mm3 (4.70-6.10); Red Cell Distribution Width 13.2 % (11.6-14.4); Site Drawn LEFT BRACHIAL
[2020-08-22 21:15] LABS: Add Urine Microscopic? YES; Appearance Urine Clear (Clear); Bilirubin Urine Negative (Negative); Blood Urine 3+ (Negative); Color Urine Yellow (Yellow); Glucose Urine UA 3+ (Negative); Ketones Urine 1+ (Negative); Leukocyte Esterase Ur Negative LEU/UL (Negative); Nitrate Urine Negative (Negative); Protein Urine 2+ (Negative); Specific Grav Ur 1.025 (1.010-1.020); Urobilinogen Urine 0.2 mg/dL (0.2-1.0); pH Urine 5.5 (5.0-8.0)
[2020-08-22 21:18] LABS: INR 1.2; Partial Thromboplastin Time 29.6 SEC (22.3-31.6)
[2020-08-22 21:20] LABS: Bacteria Urine 1+ /hpf; Squamous Epithelial Cell Urine Rare /hpf (Few); WBC Urine 16-20 /hpf (0-3)
[2020-08-22 21:24] LABS: Band Neutrophils Percent 0 % (0-6); Basophils Percent Manual 0 % (0-1); Eosinophils Percent Manual 0 % (1-6); Lymphocytes Absolute Manual 2.16 K/mm3 (1.1-4.5); Lymphocytes Percent Manual 8 % (18-44); Monocytes Absolute Manual 1.08 K/mm3 (0.1-0.90); Monocytes Percent Manual 4 % (3-9); Neutrophils Absolute Manual 23.76 K/mm3 (1.3-6.7); Neutrophils Percent Manual 88 % (46-73); Platelet Estimate Adequate (Adequate); Total Cells Counted 100
[2020-08-22 21:28] LABS: Lactic Acid Reflex 2.7 mmol/L (0.4-2.0)
--- NOTE | 2020-08-22 21:37 | PC.NURSE ---
release of information faxed to [facility]. Jaciel at [facility] medical records contacted.
[2020-08-22 21:46] LABS: Alanine Aminotransferase 28 U/L (16-63); Albumin Level 2.9 g/dL (3.4-5.0); Alkaline Phosphatase 66 U/L (46-116); Anion Gap 13 mmol/L (8-16); Aspartate Amino Transferase 38 U/L (15-37); Bilirubin,Total 1.5 mg/dL (0.00-1.00); Blood Urea Nitrogen 46 mg/dL (7-18); CRP 6.4 mg/dL (0.0-0.9); Calcium 8.8 mg/dL (8.5-10.1); Carbon Dioxide 22 mmol/L (21-32); Chloride 99 mmol/L (98-108); Estimated CRCL calculation 29 ml/min; Estimated Glomerular Filt Rate 29; Lipase 89 U/L (73-393); Potassium 4.7 mmol/L (3.5-5.1); Sodium 134 mmol/L (136-145); Total Protein 6.8 g/dL (6.4-8.2)
[2020-08-22 21:47] LABS: Creatine Kinase 1745 U/L (39-308); Glucose 527 mg/dL (70-99); Osmolality Calculated 313 mOsm/kg (285-295); Troponin I 0.32 ng/mL (0.00-0.056)
[2020-08-22 22:00] VITALS: BP 174/61; PULSE 106; RESP 32; O2SAT 97
[2020-08-22] MEDS: SODIUM CHLORIDE 0.9% IV 1,000 ML 150 ML (22:02)
[2020-08-22] MEDS: ASPIRIN 300 MG SUPPOSITORY RECTAL (22:03)
[2020-08-22] MEDS: INSULIN HUMAN REGULAR (*BKC) 100 UNITS/ML 9 UNITS IV PUSH (22:04)
[2020-08-22 22:41] LABS: Glucose Point of Care 406 (65-105)
[2020-08-22 22:50] LABS: Amphetamine Screen Urine Negative (Negative); Barbiturate Screen Urine Negative (Negative); Benzodiazepines Screen Urine Negative (Negative); Cannabinoid Screen Urine Negative (Negative); Cocaine Screen Urine Negative (Negative); Methadone Screen Urine Negative (Negative); Opiate Screen Urine Negative (Negative); Phencyclidine Screen Urine Negative (Negative)
[2020-08-22] MEDS: SODIUM CHLORIDE 0.9% IV 1,000 ML 150 ML IV CONT (23:00)
[2020-08-22 23:01] VITALS: BP 157/86; PULSE 116; RESP 32; O2SAT 98
[2020-08-22 23:30] VITALS: BP 161/68; PULSE 112; RESP 32; TEMP 37.7; O2SAT 98
[2020-08-22 23:34] VITALS: BMI 28.8
--- NOTE | 2020-08-22 23:50 | PC.NURSE ---
pt admitted to room 206, pt breathing but unresponsive to questions or repositioning in bed. spoke with Dr Davila regarding pt care, pt only belonging is one black shoe (left at bedside) and medication bottles (placed in med room). pt in view of nursing station for close monitoring, call light within reach, bed alarm on
--- NOTE | 2020-08-22 23:54 | PC.NURSE ---
unable to obtain some information for admission documentation due to pt unresponsiveness, pt also has a nasal trumpet in right nare from the ED, nasal canula on as well
[2020-08-23] LABS: Reflex Lactic Acid Yes or No Add Lactic
[2020-08-23 00:05] LABS: Glucose Point of Care 379 (65-105)
--- NOTE | 2020-08-23 00:05 | PC.NURSE ---
blood sugar called to , orders to give lantus
[2020-08-23] MEDS: INSULIN GLARGINE (*BKC) 100 UNITS/ML 50 UNITS SUB-Q (00:10)
[2020-08-23] MEDS: PANTOPRAZOLE SODIUM IV 40 MG VIAL IV PUSH ×2 (00:10→09:19)
--- NOTE | 2020-08-23 02:15 | PC.NURSE ---
blood sugar called to , no new orders at this time
[2020-08-23 02:16] LABS: Glucose Point of Care 392 (65-105)
[2020-08-23 02:20] LABS: Lactic Acid 1.9 mmol/L (0.4-2.0)
[2020-08-23 02:23] LABS: Troponin I 0.23 ng/mL (0.00-0.056)
--- NOTE | 2020-08-23 02:27 | PC.NURSE ---
Dr. Davila notified of pt's critical troponin of 0.23; No new orders at this time.
--- NOTE | 2020-08-23 04:03 | PC.NURSE ---
Dr. Davila notified of pt's blood sugar of 443; New orders received and noted.
[2020-08-23] MEDS: INSULIN HUMAN REGULAR (*BKC) 100 UNITS/ML 9 UNITS IV PUSH (04:20)
[2020-08-23] MEDS: SODIUM CHLORIDE 0.9% IV 1,000 ML 150 ML IV CONT ×3 (04:34→21:04)
[2020-08-23 05:48] LABS: Hematocrit 46.9 % (37.0-46.0); Hemoglobin 15.5 g/dL (12.4-15.3); Mean Corpuscular Hemoglobin 31.1 pg (27.0-31.0); Mean Platelet Volume 10.5 fl (8.7-11.0); Platelet Count Result 379 K/mm3 (150-420); Red Blood Count 4.99 M/mm3 (4.70-6.10); Red Cell Distribution Width 13.2 % (11.6-14.4)
[2020-08-23 06:09] LABS: Lactic Acid Reflex 2.3 mmol/L (0.4-2.0)
--- NOTE | 2020-08-23 06:09 | PC.NURSE ---
Dr. Davila notified of pt's accucheck of 353 and WBC of 29.2. No new orders at this time.
[2020-08-23 06:10] LABS: White Blood Count 29.2 K/mm3 (4.8-10.8)
[2020-08-23 06:10] LABS: Glucose Point of Care 353 (65-105)
[2020-08-23 06:10] LABS: Glucose Point of Care 443 (65-105)
[2020-08-23 06:18] VITALS: TEMP 39.7
[2020-08-23 06:18] LABS: Alanine Aminotransferase 29 U/L (16-63); Albumin Level 2.6 g/dL (3.4-5.0); Alkaline Phosphatase 55 U/L (46-116); Anion Gap 12 mmol/L (8-16); Aspartate Amino Transferase 53 U/L (15-37); Bilirubin,Total 1.3 mg/dL (0.00-1.00); Blood Urea Nitrogen 38 mg/dL (7-18); Calcium 8.3 mg/dL (8.5-10.1); Carbon Dioxide 21 mmol/L (21-32); Chloride 105 mmol/L (98-108); Estimated CRCL calculation 32 ml/min; Estimated Glomerular Filt Rate 38; Osmolality Calculated 312 mOsm/kg (285-295); Potassium 4.3 mmol/L (3.5-5.1); Sodium 138 mmol/L (136-145); Total Protein 6.1 g/dL (6.4-8.2)
[2020-08-23 06:19] LABS: Creatine Kinase 2375 U/L (39-308); Glucose 403 mg/dL (70-99); Troponin I 0.34 ng/mL (0.00-0.056)
--- NOTE | 2020-08-23 06:20 | PC.NURSE ---
call placed to Dr Davila regarding pt's critical troponin level and elevated temp, no new orders given at this time
[2020-08-23 06:21] VITALS: TEMP 39.7
[2020-08-23] MEDS: ACETAMINOPHEN 650 MG SUPPOSITORY RECTAL (06:21)
[2020-08-23 06:37] LABS: Band Neutrophils Percent 0 % (0-6); Basophils Percent Manual 0 % (0-1); Eosinophils Percent Manual 0 % (1-6); Lymphocytes Absolute Manual 1.46 K/mm3 (1.1-4.5); Lymphocytes Percent Manual 5 % (18-44); Monocytes Absolute Manual 2.04 K/mm3 (0.1-0.90); Monocytes Percent Manual 7 % (3-9); Neutrophils Absolute Manual 25.69 K/mm3 (1.3-6.7); Neutrophils Percent Manual 88 % (46-73); Total Cells Counted 100
[2020-08-23 06:38] LABS: Platelet Estimate Adequate (Adequate)
[2020-08-23 07:50] VITALS: BP 171/69; PULSE 122; RESP 24; TEMP 37.9; O2SAT 95
[2020-08-23] MEDS: SODIUM CHLORIDE 0.9% IV 1,000 ML 999 ML IV CONT (08:21)
[2020-08-23 08:25] VITALS: TEMP 37.9
[2020-08-23 08:26] LABS: Glucose Point of Care 349 (65-105)
--- NOTE | 2020-08-23 11:36 | P.PN_ITS ---
Progress Note: A&P Assessment and Plan (1) Acute alteration in mental status: Code(s): R41.82 - Altered mental status, unspecified <Jennifer GuzmanLOYDAP-C - Last Filed: 08/23/20 12:26> Status: Acute <Jennifer GuzmanLOYDAP-C - Last Filed: 08/23/20 12:26> Assessment and Plan: * Possibly secondary to brain mass * Patient will be admitted to hospice <Jennifer GuzmanREYNALDO-C - Last Filed: 08/23/20 12:26> (2) Sepsis: Qualifiers: Acute renal failure type: unspecified Sepsis acute organ dysfunction status: with acute organ dysfunction Sepsis type: sepsis due to unspecified organism Severe sepsis acute organ dysfunction type: acute renal failure Severe sepsis shock status: without septic shock Qualified Code(s): A41.9 - Sepsis, unspecified organism; R65.20 - Severe sepsis without septic shock; N17.9 - Acute kidney failure, unspecified <Jennifer GuzmanLOYDAP-C - Last Filed: 08/23/20 12:26> Code(s): A41.9 - Sepsis, unspecified organism <Jennifer GuzmanLOYDAP-C - Last Filed: 08/23/20 12:26> Status: Acute <Jennifer GuzmanLOYDAP-C - Last Filed: 08/23/20 12:26> Assessment and Plan: * Patient will be admitted to hospice * Treatment stopped <Jennifer WalterLOYDA GascaP-C - Last Filed: 08/23/20 12:26> (3) Acute renal failure: Qualifiers: Acute renal failure type: unspecified Qualified Code(s): N17.9 - Acute kidney failure, unspecified <Jennifer Guzman TRANSCRIBING MACHINE MECHANIC-C - Last Filed: 08/23/20 12:26> Code(s): N17.9 - Acute kidney failure, unspecified <Jennifer WalterLOYDA GascaP-C - Last Filed: 08/23/20 12:26> Status: Acute <Jennifer GuzmanLOYDAP-C - Last Filed: 08/23/20 12:26> Assessment and Plan: Patient will be admitted to hospice <Josefsantana Jose AngelLOYDA GascaP-C - Last Filed: 08/23/20 12:26> (4) Frontal mass of brain: Code(s): G93.89 - Other specified disorders of brain <REYNALDO Rothman-C - Last Filed: 08/23/20 12:26> Status: Acute <REYNALDO Rothman-C - Last Filed: 08/23/20 12:26> Assessment and Plan: Patient will be admitted to hospice <REYNALDO Rothman-C - Last Filed: 08/23/20 12:26> (5) Hyperglycemia due to diabetes mellitus: Code(s): E11.65 - Type 2 diabetes mellitus with hyperglycemia <LOYDA RothmanP-C - Last Filed: 08/23/20 12:26> Status: Acute <REYNALDO Rothman-C - Last Filed: 08/23/20 12:26> Assessment and Plan: * Patient will be admitted to hospice <REYNALDO Rothman-C - Last Filed: 08/23/20 12:26> (6) Elevated troponin: Code(s): R77.8 - Other specified abnormalities of plasma proteins <LOYDA RothmanP-C - Last Filed: 08/23/20 12:26> Status: Acute <LOYDA RothmanP-C - Last Filed: 08/23/20 12:26> Assessment and Plan: Patient will be admitted to hospice <REYNALDO Rothman-C - Last Filed: 08/23/20 12:26> (7) Rhabdomyolysis: Qualifiers: Rhabdomyolysis type: non-traumatic Qualified Code(s): M62.82 - Rhabdomyolysis <LOYDA RothmanP-C - Last Filed: 08/23/20 12:26> Code(s): M62.82 - Rhabdomyolysis <Jennifer Guzman TRANSCRIBING MACHINE MECHANIC-C - Last Filed: 08/23/20 12:26> Status: Acute <LOYDA RothmanP-C - Last Filed: 08/23/20 12:26> Assessment and Plan: Patient will be admitted to hospice <Jennifer Guzman TRANSCRIBING MACHINE MECHANIC-C - Last Filed: 08/23/20 12:26> (8) Brain tumor: Code(s): D49.6 - Neoplasm of unspecified behavior of brain <REYNALDO Rothman-C - Last Filed: 08/23/20 12:26> Status:
--- NOTE | 2020-08-23 11:36 | WPDPN ---
Progress Note: A&P Assessment and Plan (1) Acute alteration in mental status: Code(s): R41.82 - Altered mental status, unspecified <Jennifer GuzmanREYNALDO-C - Last Filed: 08/23/20 12:26> Status: Acute <Jennifer GuzmanREYNALDO-C - Last Filed: 08/23/20 12:26> Assessment and Plan: Possibly secondary to brain mass Patient will be admitted to hospice <Jennifer GuzmanREYNALDO-C - Last Filed: 08/23/20 12:26> (2) Sepsis: Qualifiers: Acute renal failure type: unspecified Sepsis acute organ dysfunction status: with acute organ dysfunction Sepsis type: sepsis due to unspecified organism Severe sepsis acute organ dysfunction type: acute renal failure Severe sepsis shock status: without septic shock Qualified Code(s): A41.9 - Sepsis, unspecified organism; R65.20 - Severe sepsis without septic shock; N17.9 - Acute kidney failure, unspecified <Jennifer WalterREYNALDO Gasca-C - Last Filed: 08/23/20 12:26> Code(s): A41.9 - Sepsis, unspecified organism <Jennifer GuzmanREYNALDO-C - Last Filed: 08/23/20 12:26> Status: Acute <Jennifer GuzmanREYNALDO-C - Last Filed: 08/23/20 12:26> Assessment and Plan: Patient will be admitted to hospice Treatment stopped <Josefsantana Jose AngelREYNALDO Gasca-C - Last Filed: 08/23/20 12:26> (3) Acute renal failure: Qualifiers: Acute renal failure type: unspecified Qualified Code(s): N17.9 - Acute kidney failure, unspecified <Jennifer GuzmanLOYDAP-C - Last Filed: 08/23/20 12:26> Code(s): N17.9 - Acute kidney failure, unspecified <Jennifer WalterLOYDA GascaP-C - Last Filed: 08/23/20 12:26> Status: Acute <Jennifer Corbin REYNALDO Guzman-C - Last Filed: 08/23/20 12:26> Assessment and Plan: Patient will be admitted to hospice <Jennifer Jose AngelREYNALDO Gasca-C - Last Filed: 08/23/20 12:26> (4) Frontal mass of brain: Code(s): G93.89 - Other specified disorders of brain <LOYDA RothmanP-C - Last Filed: 08/23/20 12:26> Status: Acute <LOYDA RothmanP-C - Last Filed: 08/23/20 12:26> Assessment and Plan: Patient will be admitted to hospice <LOYDA RothmnaP-C - Last Filed: 08/23/20 12:26> (5) Hyperglycemia due to diabetes mellitus: Code(s): E11.65 - Type 2 diabetes mellitus with hyperglycemia <LOYDA RothmanP-C - Last Filed: 08/23/20 12:26> Status: Acute <LOYDA RothmanP-C - Last Filed: 08/23/20 12:26> Assessment and Plan: Patient will be admitted to hospice <LOYDA RothmanP-C - Last Filed: 08/23/20 12:26> (6) Elevated troponin: Code(s): R77.8 - Other specified abnormalities of plasma proteins <LOYDA RothmanP-C - Last Filed: 08/23/20 12:26> Status: Acute <LOYDA RothmanP-C - Last Filed: 08/23/20 12:26> Assessment and Plan: Patient will be admitted to hospice <LOYAD RothmanP-C - Last Filed: 08/23/20 12:26> (7) Rhabdomyolysis: Qualifiers: Rhabdomyolysis type: non-traumatic Qualified Code(s): M62.82 - Rhabdomyolysis <Jennifer Guzman LEAK OPERATOR [employer]-C - Last Filed: 08/23/20 12:26> Code(s): M62.82 - Rhabdomyolysis <Jennifer Guzman LEAK OPERATOR [employer]-C - Last Filed: 08/23/20 12:26> Status: Acute <LOYDA RothmanP-C - Last Filed: 08/23/20 12:26> Assessment and Plan: Patient will be admitted to hospice <LOYDA RothmanP-C - Last Filed: 08/23/20 12:26> (8) Brain tumor: Code(s): D49.6 - Neoplasm of unspecified behavior of brain <DESTINEY Rothman - Last Filed: 08/23/20 12:26> Status: Acute <DESTINEY Rothman - Last Filed: 08/23/20 12:26> Assessment and Plan: Patient will be admitted to hospice <DESTINEY Rothman - Last Filed: 08/23/20 12:26> Review of Systems Review of Systems: All systems reviewed & are unremarkable except as noted in HPI and below (10 point system r
[2020-08-23] MEDS: SCOPOLAMINE 1.5 MG PATCH TRANSDERM (13:00)
[2020-08-23 16:00] VITALS: BP 186/93; PULSE 100; RESP 22; TEMP 36.8; O2SAT 95
[2020-08-24] VITALS: BP 171/75; PULSE 90; RESP 24; TEMP 37.3; O2SAT 96
--- NOTE | 2020-08-24 00:05 | PC.NURSE ---
Charge nurse notified of coarse crackles.
--- NOTE | 2020-08-24 00:10 | PC.NURSE ---
Notified Dr. Ramos of pt's coarse breath sounds. Orders received and noted.
[2020-08-24 08:00] VITALS: PULSE 89; RESP 26; TEMP 36.9; O2SAT 96
--- NOTE | 2020-08-24 08:42 | PM.DS ---
DS: Admitting Diagnosis Admitting Diagnosis Admitting Diagnosis: AMS SEPSIS RENAL FAILURE DS: Discharge Diagnosis Discharge Diagnosis (1) Acute alteration in mental status: Code(s): R41.82 - Altered mental status, unspecified Status: Acute Assessment and Plan: Possibly secondary to brain mass Patient will be admitted to hospice (2) Sepsis: Qualifiers: Acute renal failure type: unspecified Sepsis acute organ dysfunction status: with acute organ dysfunction Sepsis type: sepsis due to unspecified organism Severe sepsis acute organ dysfunction type: acute renal failure Severe sepsis shock status: without septic shock Qualified Code(s): A41.9 - Sepsis, unspecified organism; R65.20 - Severe sepsis without septic shock; N17.9 - Acute kidney failure, unspecified Code(s): A41.9 - Sepsis, unspecified organism Status: Acute Assessment and Plan: Patient will be admitted to hospice Treatment stopped (3) Acute renal failure: Qualifiers: Acute renal failure type: unspecified Qualified Code(s): N17.9 - Acute kidney failure, unspecified Code(s): N17.9 - Acute kidney failure, unspecified Status: Acute Assessment and Plan: Patient will be admitted to hospice (4) Frontal mass of brain: Code(s): G93.89 - Other specified disorders of brain Status: Acute Assessment and Plan: Patient will be admitted to hospice (5) Hyperglycemia due to diabetes mellitus: Code(s): E11.65 - Type 2 diabetes mellitus with hyperglycemia Status: Acute Assessment and Plan: Patient will be admitted to hospice (6) Elevated troponin: Code(s): R77.8 - Other specified abnormalities of plasma proteins Status: Acute Assessment and Plan: Patient will be admitted to hospice (7) Rhabdomyolysis: Qualifiers: Rhabdomyolysis type: non-traumatic Qualified Code(s): M62.82 - Rhabdomyolysis Code(s): M62.82 - Rhabdomyolysis Status: Acute Assessment and Plan: Patient will be admitted to hospice (8) Brain tumor: Code(s): D49.6 - Neoplasm of unspecified behavior of brain Status: Acute Assessment and Plan: Patient will be admitted to hospice DS: Summary Time Spent with Patient Time attestation: Total time spent providing and/or coordinating discharge services: Exam Const: General: other (Unresponsive); No alert, awake or Physically active Resp: Effort & Inspection: labored, nasal flaring and other ( rattle, apnea) Cardio: Jugular venous distension: no JVD Rate: tachycardic GI: Inspection: normal to inspection : General: Yes bladder normal to inspection Skin: Lesions: lesion noted (Mass to the left ear and right cheek) Neuro: General: other (Unresponsive) Cognition (Neuro): abnormal cognition Extrem: General: Limp noted Discharge Plan Discharge Attending physician on discharge: Peter Aragon Discharging Clinician: Jennifer Guzman Anticipated Discharge Date/Time: 08/24/20 12:00 Patient Disposition: Hospice - Home Activity: as tolerated Diet: as tolerated Discharge Instructions: Patient will be admitted to hospice Patient requires positioning of body in ways not feasible and regular barriers to alleviate pain. Patient requires frequent change in body position to management. [facility] TO FOLLOW AT DISCHARGE PHONE: [phone] FAX DISCHARGE INSTRUCTIONS TO Stand Alone Forms: General Discharge Information Discharge Medications: New lorazepam 2 mg/mL concentrate 2 mg buccal HS PRN (Reason: agitation) 30 Days Qty: 30 RF: 0 morphine 20 mg/5 mL (4 mg/mL) solution 10 mg PO Q4H PRN (Reason: pain) 30 Days Qty: 100 RF: 0 acetaminophen 650 mg suppository 650 mg [place] Q6H PRN (Reason: fever or pain) 30 Days Qty: 12 RF: 0 atropine [Isopto Atropine] 1 % drops 2 drp PO Q4-6H PRN (Reason:
== END 2020-08-24 13:00 | disposition hospice, home (50) | DRG 872 ==
LOC: CHSED 22:32 → CHS2ND 22:49
PROVIDERS: Admitting Provider Emergency Medicine; Emergency Provider Emergency Medicine; PCP Family Medicine; Visit Provider Emergency Medicine
DX: A41.9 Sepsis, unspecified organism (principal); R65.20 Severe sepsis without septic shock; N17.9 Acute kidney failure, unspecified; M62.82 Rhabdomyolysis; D49.6 Neoplasm of unspecified behavior of brain; E11.9 Type 2 diabetes mellitus without complications; I10 Essential (primary) hypertension; E78.5 Hyperlipidemia, unspecified; Z89.519 Acquired absence of unspecified leg below knee; Z79.899 Other long term (current) drug therapy; E11.65 Type 2 diabetes mellitus with hyperglycemia; R79.89 Other specified abnormal findings of blood chemistry; Z51.5 Encounter for palliative care
CPT/HCPCS: 36415; 36600; 70450; 80053; 80307; 81001; 82550; 82805; 83605; 83690; 84484; 85025; 85610; 85730; 86140; 87040; 87086; 93005; 96361; 96365; 96368; 96375; 99285; A9270; C9113; J0743; J1815; J3370; J7030